=== PATIENT | female | born 1940 | race Caucasian/White ===

== ENCOUNTER 2020-12-06 11:47 | Observation (INO) | payer MEDICARE, MEDICAID ==
--- NOTE | 2020-12-06 12:24 | EDM.PDOC ---
ED HPI GENERAL MEDICAL PROBLEM - General Chief Complaint: General Stated Complaint: VOMITING Time Seen by Provider: 12/06/20 12:20 Source of Information: Reports: Patient History Limitations: Reports: No Limitations - History of Present Illness INITIAL COMMENTS - FREE TEXT/NARRATIVE: 80-year-old female who reports was having a bowel movement at approximately 9 AM today and she was having to strain quite a bit as she normally does to have a bowel movement and she begin to feel very weak and dizzy and some generalized abdominal discomfort and she went to her bed and laid down and rested for a period of time but she had to go to the clinic because she had carotid ultrasounds were being performed today and she arrived at the clinic in about 10:15 AM while she was there she began to feel worse and she felt very weak all over and then she states she "lost a bit of time". According to Dr. Peace who called and discussed the patient with me as she was sending her via ambulance to the emergency department, the patient apparently he slurred speech and then had some sweating and is noted to have a blood pressure in the 60-80 systolic range and became unresponsive for a period of time. She then had vomiting 2 or 3 and she seemed to clear but after this and became more responsive and her blood pressure mayra into the 100 systolic range. She did not have any chest pain at that time. There is no shortness of breath at that time. She had really no abdominal pain at that time as well. She does present to the emergency department via ambulance in her blood pressure en route was 120 systolic. The EMS crew was given the patient normal saline milliliters IV as a bolus. She tells me that she feels better but she still feels weak all over. And she states that when she tries to sit up, things get worse. She reports that prior to this she had been eating and drinking normally. She felt her "usual self". She states that she frequently has problems with her bowels moving and feels that she has to strain with them and has some discomfort with passing bowel movements. No fevers or chills. No dysuria or hematuria. No cough. No difficulty breathing. There are no other associated signs or symptoms. There are no other modifying factors. 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.) - Related Data Allergies Allergy/AdvReac Type Severity Reaction Status Date / Time [id number]-[id number]-Xtd Reductase Allergy Weakness Verified 12/06/20 13:11 Inhibitor Home Meds: Home Meds Cyanocobalamin (Vitamin B12) [Vitamin B12] 1,000 mcg IM Q30D 03/23/20 [History] Diclofenac Sodium 1 applic TOP BID PRN 03/23/20 [History] Ezetimibe [Zetia] 10 mg PO DAILY 03/23/20 [History] Gabapentin [Neurontin] 600 mg PO BEDTIME 03/23/20 [History] Insulin Glarg,Human.Rec.Analog [Lantus Solostar] 14 units SUBCUT DAILY 03/23/20 [History] Levothyroxine Sodium [Levothyroxine] 50 mcg PO ACBREAKFAST 03/23/20 [History] Lubiprostone [Amitiza] 1 cap PO BID 03/23/20 [History] Omeprazole 20 mg PO DAILY 03/23/20 [History] Ozempic 0.25 - 0.5 mg SUBCUT Q7D 03/23/20 [History] Aspirin 81 mg PO DAILY 12/06/20 [History] Bisacodyl [Laxative Suppository] PRN 12/06/20 [History] Melatonin 10 mg SL BEDTIME 12/06/20 [History] Olmesartan [Benicar] 20 mg PO DAILY 12/06/20 [History] Ondansetron [Zofran ODT] 4 mg PO PRN 12/06/20 [History] Sennosides [Senna Lax] PRN 12/06/20 [History] Sertraline [Zoloft] 100 mg PO BEDTIME 12/06/20 [History] Simethicone [Gas Relief] 125 mg PO PRN 12/06/20 [History] Past Medical History HEENT History: Reports: Impaired Vision (Wears glasses) Cardiovascular History: Reports: Hypertension Gastrointestinal History: Reports: Cholelithiasis, GERD Genitourinary History: Reports: Pyelonephritis, Urinary Incontinence, Other (See Below) Other Genitourinary History: UTI currently taking antibiotics for has had since January Musculoskeletal History: Reports: Arthritis, Back Pain, Chronic, Other (See Below) Other Musculoskeletal History: cortisone shot in each arm for torn shoulder tendons and thumbs bilaterally Neurological History: Reports: CVA Psychiatric History: Reports: Anxiety, Depression Endocrine/Metabolic History: Reports: Diabetes, Type II, Hypothyroidism - Infectious Disease History Infectious Disease History: Reports: Measles, Mumps - Past Surgical History HEENT Surgical History: Reports: Cataract Surgery GI Surgical History: Reports: Colonoscopy Female Surgical History: Reports: Hysterectomy Social & Family History - Tobacco Use Tobacco Use Status *Q: Unknown Ever Used Tobacco (Nonsmoker.) - Caffeine Use Caffeine Use: Reports: Coffee - Alcohol Use Alcohol Use History: No - Living Situation & Occupation Living situation: Reports: Social History Comment: Lives by herself in her own home. ED ROS GENERAL - Review of Systems Review Of Systems: See Below Constitutional: Reports: Weakness, Diaphoresis. Denies: Fever, Chills HEENT: Denies: Throat Pain, Throat Swelling Respiratory: Denies: Shortness of Breath, Cough Cardiovascular: Denies: Chest Pain, Palpitations Endocrine: Denies: Polydypsia, Polyuria GI/Abdominal: Reports: Abdominal Pain (Mild, diffuse,), Nausea, Vomiting : Denies: Dysuria, Frequency, Hematuria, Urgency Musculoskeletal: Denies: Neck Pain, Arm Pain, Back Pain Skin: Reports: Diaphoresis. Denies: Rash Neurological: Denies: Dizziness, Headache Psychiatric: Reports: Anxiety. Denies: Confusion Hematologic/Lymphatic: Denies: Easy Bleeding, Easy Bruising ED EXAM, GENERAL - Physical Exam Exam: See Below Exam Limited By: No Limitations General Appearance: Alert, WD/WN, Anxious, Moderate Distress (Appears uncomfortable. Otherwise nontoxic.) Eye Exam: Bilateral Eye: EOMI, Normal Inspection (Sclera are anicteric), PERRL Ears: Normal External Exam, Hearing Grossly Normal Ear Exam: Bilateral Ear: Auricle Normal Nose: Normal Inspection, Normal Mucosa, No Blood Throat/Mouth: Normal Voice, No Airway Compromise, Other (Dry mucous membranes. No erythema.) Head: Atraumatic, Normocephalic Neck: Normal Inspection, Supple, Non-Tender, Full Range of Motion Respiratory/Chest: No Respiratory Distress, Lungs Clear, Normal Breath Sounds, No Accessory Muscle Use, Chest Non-Tender Cardiovascular: Normal Peripheral Pulses, Regular Rate, Rhythm, No Murmur Peripheral Pulses: 2+: Radial (L), Radial (R), Dorsalis Pedis (L), Dorsalis Pedis (R) GI/Abdominal: Normal Bowel Sounds, Soft, Non-Tender, No Mass Rectal (Female) Exam: Heme - Stool, Other (Some anal stenosis.). No: Mass Back Exam: Normal Inspection, Full Range of Motion Extremities: Normal Inspection, Normal Range of Motion, Non-Tender, No Pedal Edema, Normal Capillary Refill Neurological: Alert, Oriented, CN II-XII Intact, Normal Cognition, No Motor/Sensory Deficits Psychiatric: Anxious Skin Exam: Warm, Dry, Intact, Normal Color, No Rash #1 Interpretation EKG Date: 12/06/20 Time: 12:34 Rhythm: NSR Rate (Beats/Min): 57 [place]: Normal P-Wave: Present QRS: Normal ST-T: Normal QT: Normal Comparison: No Change (No change from an EKG performed on 03/23/2020.) Course - Vital Signs Last Recorded V/S: Last Vital Signs Temp 36.7 C 12/06/20 12:04 Pulse 62 12/06/20 13:30 Resp 13 12/06/20 13:30 BP 130/59 L 12/06/20 13:30 Pulse Ox 98 12/06/20 15:20 Orthostatic Blood Pressure [ 99/64 Standing] Orthostatic Blood Pressure [ 109/73 Sitting] Orthostatic Blood Pressure [ 120/48 Supine] - Orders/Labs/Meds Orders: Active Orders 24 hr Category Date Time Status Admission Status [Patient Status] [ADT] Routine ADT 12/06/20 15:09 Active Blood Glucose Check, Bedside [RC] QIDACANDBED Care 12/06/20 15:20 Active Cardiac Monitoring [RC] .As Directed Care 12/06/20 15:09 Active Orthostatic Vital Signs [RC] ONETIME Care 12/06/20 12:24 Active Oxygen Therapy [RC] PRN Care 12/06/20 15:20 Active Pulse Oximetry [RC] PRN Care 12/06/20 15:23 Active Up With Assistance [RC] ASDIRECTED Care 12/06/20 15:20 Active Up to Chair [RC] ASDIRECTED Care 12/06/20 15:20 Active VTE/DVT Education [RC] Per Unit Routine Care 12/06/20 15:20 Active Vital Signs [RC] QSHIFT Care 12/06/20 15:20 Active Consistent Carbohydrate Diet [DIET] Diet 12/06/20 Dinner Active CBC WITH AUTO DIFF [HEME] AM Lab 12/07/20 05:11 Ordered COMPREHENSIVE METABOLIC PN,CMP [CHEM] AM Lab 12/07/20 05:11 Ordered CORONAVIRUS COVID-19 CHAVEZ [MOLEC] Stat Lab 12/06/20 15:22 Received CORTISOL Routine Lab 12/07/20 06:00 Ordered MAGNESIUM [CHEM] AM Lab 12/07/20 05:11 Ordered TROPONIN I [CHEM] AM Lab 12/07/20 05:11 Ordered TSH ULTRASENSITIVE [CHEM] Routine Lab 12/07/20 06:00 Ordered UA W/MICROSCOPIC [URIN] Stat Lab 12/06/20 15:55 Ordered Sodium Chloride 0.9% [Saline Flush] Med 12/06/20 12:24 Active 10 ml FLUSH ASDIRECTED PRN Peripheral IV Insertion Adult [OM.PC] Routine Oth 12/06/20 12:24 Ordered Resuscitation Status Routine Resus Stat 12/06/20 15:20 Ordered EKG 12 Lead [EK] Routine Ther 12/06/20 12:24 Ordered Medication Orders Sodium Chloride (Sodium Chloride 0.9% 10 Ml Syringe) 10 ml FLUSH ASDIRECTED PRN PRN Reason: Keep Vein Open Last Admin: 12/06/20 15:20 Dose: 10 ml Documented by: Admin: 12/06/20 13:16 Dose: 10 ml Documented by: YURI Labs: Laboratory Tests 12/06/20 12/06/20 12/06/20 Range/Units 12:35 12:35 12:35 WBC 6.3 (3.0-10.3) x10-3/uL RBC 3.99 (3.60-5.20) x10(6)uL Hgb 11.1 L (11.4-15.5) g/dL Hct 34.0 L (34.2-48.2) % MCV 85.2 (76.7-100.5) fL MCH 27.7 (23.9-33.9) pg MCHC 32.6 (31.9-34.8) g/dL RDW 13.5 (12.3-16.5) % Plt Count 276 (151-488) x10(3)uL MPV 6.2 L (7.1-12.4) fL Neut % (Auto) 80.2 H (30.8-76.2) % Lymph % (Auto) 12.8 L (18.4-52.1) % [place] % (Auto) 5.8 (4.4-15.7) % Eos % (Auto) 0.9 (0.6-8.1) % Baso % (Auto) 0.3 (0.2-1.5) % Neut # (Auto) 5.1 (1.5-6.3) x10-3/uL Lymph # (Auto) 0.8 L (1.0-4.4) x10-3/uL [place] # (Auto) 0.4 (0.3-1.0) x10-3/uL Eos # (Auto) 0.1 (0.0-0.8) x10-3/uL Baso # (Auto) 0.0 (0.0-0.1) x10-3/uL Sodium 142 (135-145) mmol/L Potassium 4.6 (3.5-5.3) mmol/L Chloride 108 (100-110) mmol/L Carbon Dioxide 29 (21-32) mmol/L BUN 14 (7-18) mg/dL Creatinine 1.4 H (0.55-1.02) mg/dL Est Cr Clr Drug Dosing 23.78 mL/min Estimated GFR (MDRD) 36 L (>60) BUN/Creatinine Ratio 10.0 (9-20) Glucose 101 (80-116) mg/dL Calcium 8.9 (8.6-10.2) mg/dL Magnesium 2.0 (1.8-2.5) mg/dL Total Bilirubin 0.4 (0.1-1.3) mg/dL AST 13 (5-25) IU/L ALT 15 (12-36) U/L Alkaline Phosphatase 82 (56-112) IU/L Troponin I < 4.0 L (4.0-60.3) pg/mL C-Reactive Protein < 0.2 L (0.5-0.9) mg/dL Total Protein 5.9 L (6.0-8.0) g/dL Albumin 3.3 (3.2-4.6) g/dL Globulin 2.6 g/dL Albumin/Globulin Ratio 1.3 Meds: Medications Generic Name Dose Route Start Last Admin Trade Name César PRN Reason Stop Dose Admin Sodium Chloride 10 ml 12/06/20 12:24 12/06/20 15:20 Sodium Chloride 0.9% 10 Ml Syringe FLUSH 10 ml ASDIRECTED PRN Administration Keep Vein Open Discontinued Medications Generic Name Dose Route Start Last Admin Trade Name César PRN Reason Stop Dose Admin Sodium Chloride 500 mls @ 999 mls/hr 12/06/20 12:54 12/06/20 13:05 Normal Saline IV 12/06/20 13:24 999 mls/hr .BOLUS ONE Administration Sodium Chloride 500 mls @ 999 mls/hr 12/06/20 15:17 12/06/20 15:20 Normal Saline IV 12/06/20 15:47 999 mls/hr .BOLUS ONE Administration Iopamidol 75 ml 12/06/20 14:38 12/06/20 15:10 Iopamidol 755 Mg/Ml 75 Ml Bottle IV 12/06/20 14:39 75 ml ASDIRECTED ONE Administration Lorazepam 0.5 mg 12/06/20 12:54 12/06/20 13:05 Lorazepam 2 Mg/Ml Sdv IVPUSH 12/06/20 12:55 0.5 mg ONETIME ONE Administration - Radiology Interpretation Free Text/Narrative:: CT scan of the abdomen and pelvis showed hydronephrosis on the right. No evidence of ureterolithiasis or anything that would be causing the hydronephrosis. Otherwise was negative per Dr. Aguilar. - Re-Assessments/Exams Free Text/Narrative Re-Assessment/Exam: 12/06/20 13:50: White blood cell count is 6.3. Hemoglobin is 11.1. This is down from 14 from about a year ago. Platelet count is normal. Sodium is 142. Potas sium is 4.6. Bicarbonate was 29. BUN is 14 and creatinine is 1.4. Glucose is 101. LFTs are normal. Magnesium is normal. Troponin is negative. CRP is normal. The patient still reports she feels weak. Her blood pressure with her lying is in the 110 to 1:30 systolic range but when she stood after the 500 bolus of normal saline from the ambulance crew, she is orthostatic changes and had dizziness with standing. We will give her another 500 mL bolus of normal saline. She appears to be dehydrated from some cause. 12/06/20 14:25: The patient is still orthostatic after another 500 mL bolus of normal saline. With a blood pressure down to the 90 systolic range. She denies any chest pain or comfort at this time but was reporting some abdominal discomfort earlier. I will send the patient for CT scan of her abdomen and pelvis. I did discuss the patient's case with Dr. Mc. The patient is still having some hypotension and will need admission. He will see the patient and admit her. The plan will be to place her under observation status. 12/06/20 15:20: CT scan of the abdomen and pelvis was really pointing toward anything that would cause retention of his colitis. Process and a urine will be sent. I called and discussed this with Dr. Mc as the patient had been transferred to the floor. Departure - Departure Time of Disposition: 15:10 Disposition: Refer to Observation Condition: Fair (Stable) Clinical Impression: Hypotension Qualifiers: Hypotension type: unspecified hypotension type Qualified Code(s): I95.9 - Hypotension, unspecified Syncope Qualifiers: Syncope type: unspecified Qualified Code(s): R55 - Syncope and collapse - Discharge Information Referrals: Neris Peace MD [Primary Care Provider] - Forms: ED Department Discharge Sepsis Event Note (ED) - Evaluation Sepsis Screening Result: No Definite Risk - Focused Exam Vital Signs: Vital Signs Temp Pulse Resp BP Pulse Ox Pulse Ox 12/06/20 15:20 98 12/06/20 13:30 62 13 130/59 L 95 12/06/20 13:15 57 L 9 L 112/83 99 12/06/20 13:05 99 12/06/20 13:04 99 12/06/20 13:00 98 12/06/20 12:45 61 14 155/115 H 100 12/06/20 12:30 62 13 123/57 L 95 12/06/20 12:15 62 11 L 127/55 L 95 12/06/20 12:04 36.7 C 63 16 134/58 L 94 L 12/06/20 12:00 64 12 134/58 L 94 L 12/06/20 11:50 36.7 C 59 L 16 123/57 L 96 - My Orders Last 24 Hours: My Active Orders 12/06/20 12:24 Orthostatic Vital Signs [RC] ONETIME Sodium Chloride 0.9% [Saline Flush] 10 ml FLUSH ASDIRECTED PRN Peripheral IV Insertion Adult [OM.PC] Routine EKG 12 Lead [EK] Routine 12/06/20 15:09 Admission Status [Patient Status] [ADT] Routine Cardiac Monitoring [RC] .As Directed 12/06/20 15:22 CORONAVIRUS COVID-19 CHAVEZ [MOLEC] Stat 12/06/20 15:55 UA W/MICROSCOPIC [URIN] Stat - Assessment/Plan Last 24 Hours: My Active Orders 12/06/20 12:24 Orthostatic Vital Signs [RC] ONETIME Sodium Chloride 0.9% [Saline Flush] 10 ml FLUSH ASDIRECTED PRN Peripheral IV Insertion Adult [OM.PC] Routine EKG 12 Lead [EK] Routine 12/06/20 15:09 Admission Status [Patient Status] [ADT] Routine Cardiac Monitoring [RC] .As Directed 12/06/20 15:22 CORONAVIRUS COVID-19 CHAVEZ [MOLEC] Stat 12/06/20 15:55 UA W/MICROSCOPIC [URIN] Stat
[2020-12-06] MEDS ORDERED: Sodium Chloride 0.9% 500 ML IV ONE ×2 (12:54→15:17)
[2020-12-06] MEDS ORDERED: LORazepam 2 MG/ML SDV IVPUSH ONE (12:54)
[2020-12-06] MEDS: Sodium Chloride 0.9% 10 ML Syringe FLUSH PRN ×2 (13:16→15:20)
[2020-12-06] MEDS ORDERED: Iopamidol 755 Mg/ML 75 ML Bottle IV ONE (14:38)
--- NOTE | 2020-12-06 15:58 | CT ---
INDICATION: Abdominal discomfort, syncope, nausea and vomiting this morning. CT ABDOMEN AND PELVIS WITH CONTRAST: Spiral 3.75 mm axial sections were obtained through the abdomen and pelvis with 75 mL [id number]-370 at 2 mL/sec with 2 minute delay due to equipment error, 12/06/20 and compared with 10/16/20. Total exam DLP was 399.47 milligray-cm. The lower lung pérez and pleural spaces visualized again showed a small nodular density oval in shape in the left lower lobe on axial image 10 seen on the previous study on axial image 11. No active infiltrate or effusion was seen. The heart appeared normal in size. There is slight thickening of the pericardium of questionable significance that could be related to a mild degree of pericarditis or previous pericarditis - correlate clinically. The gallbladder is absent compatible with cholecystectomy. Clips are noted at the cystic duct. The liver had a normal appearance. The adrenal glands are unchanged and not grossly abnormal with spleen and pancreas appearing essentially normal. The common bile duct was normal in caliber. Calcifications are noted in the splenic artery, gastric and hepatic arteries, superior mesenteric artery, iliac and femoral arteries. The uterus is absent compatible with history of its removal. Urinary bladder was unremarkable. No retroperitoneal mass was seen. The stomach was empty - nondiagnostic. The appendix is absent compatible with history of its removal. No evidence of free air or bowel obstruction was seen. No evidence of ventral or inguinal hernia was seen. No aneurysmal dilatation of the aorta was seen. A minimal dextroconcave scoliosis of the lumbar spine is again noted with hypertrophic degenerative changes and disc disease at L2-L3 again noted. Marked narrowing at that disc space is noted. Hypertrophic degenerative changes and disc disease are noted at the lower thoracic spine also at multiple levels. The kidneys appeared normal on the left with a tiny probable cyst in the upper pole of the right kidney and apparent hydronephrosis and hydroureter down to the urinary bladder, although a focal site of obstruction was not identified - no ureteral calculus was seen - no urinary bladder calculus was seen. Findings could be on the basis of a recently passed right ureteral stone. With IV contrast on board, it is difficult to exclude renal calcinosis. IMPRESSION: 1. [id number]-laqsdtoag abdomen - no bowel obstruction or free air noted. 2. ASD. 3. Post appendectomy, post hysterectomy, post cholecystectomy. 4. Hydronephrosis and hydroureter on the right could represent recently passed stone or partially obstructive process at the ureterovesical junction although no specific etiology such as a calculus or a mass could be identified. This should be correlated clinically. Retrograde pyelography may be warranted depending upon clinical correlation. This appearance was not present on the previous study. 5. Degenerative changes and disc disease thoracolumbar spine. 6. Thickening of the pericardium seen previously could be on the basis of previous or mild pericarditis. 7. No specific abnormality of the large bowel was identified. 8. The stomach was not distended making it difficult to exclude thickening of the wall. Report was called to Dr. Manzo at 1532 hours 12/06/20. [facility]
[2020-12-06] MEDS ORDERED: Gabapentin 600 MG Tab PO SCH (21:00)
[2020-12-06] MEDS ORDERED: Melatonin 3 MG Tab PO SCH (21:00)
[2020-12-07] MEDS ORDERED: 50% Dextrose in Water 50 ML Syringe IVPUSH PRN (10:54)
[2020-12-07] MEDS ORDERED: Glucagon,Human Recombinant 1 MG Vial IM PRN (10:54)
[2020-12-07] MEDS ORDERED: Insulin Glargine,Human Rec. Analog 100 Units/ML 3 ML Pen *PTOM SUBCUT SCH (11:00)
--- NOTE | 2020-12-11 10:51 | HP ---
ADMISSION DATE: 12/06/2020 CHIEF COMPLAINT: Vomiting and weakness. HISTORY OF PRESENT ILLNESS: Ms. Conteh is an 80-year-old woman from [place] with a history of a right CVA, type 2 diabetes, orthostatic hypotension, and chronic essential hypertension. The patient has been seen by Dr. Peace in the clinic because of orthostatic type symptoms. She was scheduled to have a carotid Doppler study this morning and felt weak when she got up and drove herself to the clinic. She subsequently had a near syncopal episode and throwing up, so was brought to the emergency room where she was seen by Dr. Manzo and found to be significantly orthostatic. She is now admitted. The patient states this has been going on intermittently for the past couple of months. Dr. Peace stopped one of her diabetes pills because of it and she is still in the process of working up. She denies chest pain, palpitations, but states that this has happened to her at least once in the sitting position and at least once while lying down. She describes it as a feeling of dizziness like she has to close her eyes. She is not incontinent with it. PAST MEDICAL HISTORY: Right CVA with left hemiplegia in 2019. She has regained most of her strength, but her left leg still does not work as well. She also has a history of chronic essential hypertension. She has had UTIs. She has had 7 pregnancies and deliveries. She has had low back pain with spinal stenosis, improved with steroid injections. She has had arthritis in her shoulders and her thumbs. She has hypothyroidism, chronic depression. She is status post cataract surgeries, appendectomy, cholecystectomy, abdominal hysterectomy with USO, and she states she had a normal colonoscopy 1 month ago. MEDICATIONS: 1. Vitamin B12 1000 mcg IM monthly. 2. Diclofenac topical gel p.r.n. 3. Zetia 10 mg daily. 4. Gabapentin 600 mg b.i.d. 5. Lantus 14 units daily. 6. Levothyroxine 50 mcg daily. 7. Amitiza 1 cap b.i.d. 8. Olmesartan 20 mg daily. 9. Omeprazole 20 mg daily. 10.Ozempic 0.5 mg subcu weekly. 11.Januvia 50 mg daily. 12.Metformin 500 mg b.i.d. ALLERGIES: Statins caused a period of extensive weakness a couple of years ago. HABITS: Nonsmoker, nondrinker. FAMILY AND SOCIAL HISTORY: The patient moved to [place] to be near one of her children. She was originally from the [place] area. Her daughter has subsequently moved away. She does have an ex son-in-law in [facility], who has looked in on her. REVIEW OF SYSTEMS: Negative for fever, chills, sweats, or symptoms of recent infection. No recent change in hearing or vision. No cough, dyspnea, chest pain, palpitations. No abdominal pain. She does have chronic irritable bowel syndrome with alternating diarrhea and constipation. No swelling or skin rash. PHYSICAL EXAMINATION: GENERAL: She is alert and comfortable while lying. She is pale, however. VITAL SIGNS: Blood pressure 109/73, drops to 99/64 sitting. Pulse is 61 and regular, respirations normal, O2 saturation 99% on room air. Weight 132 pounds estimated. SKIN: Anicteric. Warm, dry. Face is pale. No rash is noted. No trauma. HEENT: Mouth is dry. Pupils equal and reactive with evidence of cataract surgery. LUNGS: Clear to the bases with good air movement. HEART: Regular without murmur, rub, or gallop. Carotids are brisk. No bruits are heard. ABDOMEN: Normal bowel sounds. Soft and nontender. No masses. No organomegaly. EXTREMITIES: Warm, well perfused. No edema. Dorsalis pedis pulses were palpable, but I could not feel her posterior tibials. LABORATORY DATA: White count 6,300, hemoglobin 11.1, MCV 85. Electrolytes normal. BUN 14, creatinine 1.4. Troponin less than 4. CRP less than 0.2. ASSESSMENT: 1. Orthostatic hypotension, cause unclear. 2. History of right cerebrovascular accident in 2019 with minimal left lower extremity residual weakness. 3. History of severe statin intolerance with extensive muscle weakness. 4. History of sciatica. 5. Type 2 diabetes. 6. Hypothyroidism. 7. Chronic essential hypertension. 8. Gastroesophageal reflux disease. 9. Irritable bowel syndrome. PLAN: We will admit her for additional IV fluid, recheck her orthostatic vitals, likely decrease her gabapentin as tolerated, and anticipate a brief hospital stay. /[id number] RO/MODL
--- NOTE | 2020-12-11 10:52 | HP ---
ADMISSION DATE: 12/06/2020 CHIEF COMPLAINT: Weak spell, nausea, vomiting, and low blood pressure. HISTORY OF PRESENT ILLNESS: Vanessa Conteh is an 80-year-old female, who was admitted through [facility] ER by Dr. Manzo. She had been feeling poorly for the last couple of days time. She has a longstanding history of IBS and some difficult bowel movements. Has had lower endoscopy to prove confirmation of normal anatomy. She had gone to [facility] in [place], under the care Dr. Peace. She was scheduled for a carotid ultrasound. 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 When she got there, she felt weak, nauseated, had an episode of vomiting. Blood pressure was low systolics 50 to 80, was transferred by ambulance. IV fluids were given en route, was seen by Dr. Manzo in hospital for treatment. [place] better in her interval care and admission to the emergency room. Feeling well since that time. MEDICATIONS: Daily medications include: 1. Tylenol 500 mg q.6 hours p.r.n. for pain. 2. Baby aspirin 81 mg, CVA prevention. 3. PRN bisacodyl suppository. 4. Vitamin B12 1000 mg IM q.30 days duration, pernicious anemia. 5. Diclofenac gel 2 g q.i.d., affected joint. 6. Zetia 10 mg 1 p.o. daily, hyperlipidemia. 7. Gabapentin 600 mg at bedtime, neuropathic pain. 8. Lantus 10 units subcu daily, NIDDM. 9. Levothyroxine 50 mcg one p.o. daily, hypothyroidism. 10.Loratadine 10 mg p.r.n. hay fever. 11.Amitiza 24 mg b.i.d., IBS. 12.Milk of mag 15 to 30 at bedtime p.r.n. constipation. 13.Melatonin 20 mg at bedtime, sleep enhancement. 14.Benicar 10 mg 1 p.o. daily, blood pressure. 15.Prilosec 20 mg 1 p.o. daily, GERD. 16.PRN sublingual Zofran for nausea. 17.Ozempic 0.5 mg subcu once weekly. 18.MiraLAX 17 g one daily, constipation. 19.Senna 1 or 2 daily, constipation. 20.Sertraline 50 mg 1 p.o. daily, mood stabilizer. 21.Simethicone 25 mg chewable t.i.d., gastritis. 22.Triamcinolone cream. ALLERGIES: Statins with weakness. PAST MEDICAL HISTORY: Significant for previous operative cholelithiasis. Appendectomy and hysterectomy. No other operative procedures, hospitalizations, unusual childhood diseases, major injuries, or fractures. Medical disorders noted above. SOCIAL HISTORY: . Lives in the [facility]. Seven children; 3 girls, 4 boys. Nonsmoker. No alcohol. No illicit drug use. REVIEW OF SYSTEMS: CONSTITUTIONAL: Feeling much better this morning. EYES: Some visual change related to stroke. EARS: Hears well, some difficulty in crowds. OROPHARYNX: Intact dentition. CV: Denies chest pain, palpitations. RESPIRATORY: No chronic cough, wheeze, or congestion . GI: Please see HPI. : Voiding comfortably, no blood in urine. SKIN: No lesions, eruptions, or moles . ENDOCRINE: No excessive thirst or urination. PHYSICAL EXAMINATION: VITAL SIGNS: Stable. 36.4, pulse 107, 132/82, respirations 16, O2 saturation 98%. GENERAL: Young lady, cooperative, conversant. Gives a good history. HEENT: Unremarkable. NECK: Supple. Thyroid small. No carotid bruits. CHEST: On auscultation, clear in all lung pérez. HEART: On auscultation, no ectopy or murmur . BREASTS: Declined. ABDOMEN: Benign. Right upper quadrant cholecystectomy scar, appendectomy scar. Surgical scars well healed. No hepatosplenomegaly. PELVIC: Refused. RECTAL: Refused . EXTREMITIES: Refused. LABORATORY STUDIES: White count 6300, repeat 4000; hemoglobin 11.1, repeat 10.5. Electrolytes satisfactory. Creatinine 1.4, repeat 1.3; GFR 36, increased to 39. Urinalysis noted positive nitrites, 5-10 red cells, 20-30 white cells, we will await culture report. COVID negative. CT abdomen revealed nonacute abdomen, absent appendix post hysterectomy, post cholecystectomy. Hydronephrosis of right side, but no complicating issue. Degenerative changes. ASSESSMENT: Acute vasovagal episode, nausea, vomiting, hypertension. PLAN: No medications on board that are related to blood pressure. Adequate fluids and hydration, well being. At the time of my examination, she was stable, comfortable, and ready for discharge. We will follow up with Dr. Peace. Timely appropriate care. We will complete carotid ultrasound at a later time. /[id number] CHAMP/BEBA
--- NOTE | 2020-12-11 10:52 | DISCH ---
DISCHARGE DATE: 12/07/2020 Vanessa Conteh is an 80-year-old female admitted with vasovagal symptoms, nausea, and marked reduction in blood pressure. She was evaluated overnight, intravenous fluids were given, blood pressures normalized, and she was otherwise comfortable. Laboratory studies and CT of the abdomen revealed no major new pathological findings. Vital signs were stable, exam was without conflict, was discharged home. She is encouraged to be a better fluid drinker, medications will be unchanged. She will follow up with Dr. Peace in 1 week's duration and completion of her carotid studies. /[id number] CHAMP/BEBA
== END 2020-12-07 12:33 | disposition home or self-care (01) ==
LOC: FB.ED 11:47 → FB.MS 15:14 → UNDOADMOB 15:14
PROVIDERS: ADMIT Family Medicine; ATTEND Family Medicine
DX: I95.9 Hypotension, unspecified (principal); E11.9 Type 2 diabetes mellitus without complications; E03.9 Hypothyroidism, unspecified; I10 Essential (primary) hypertension; E78.00 Pure hypercholesterolemia, unspecified; N13.30 Unspecified hydronephrosis; Z86.73 Personal history of transient ischemic attack (TIA), and cerebral infarction without residual deficits; Z79.82 Long term (current) use of aspirin; Z79.890 Hormone replacement therapy; Z79.899 Other long term (current) drug therapy; Z88.8 Allergy status to other drugs, medicaments and biological substances; Z20.822 Contact with and (suspected) exposure to COVID-19
CPT/HCPCS: 36415; 74177; 80053; 81001; 82272; 82533; 82947; 83735; 84443; 84484; 85025; 86140; 87086; 87088; 87186; 93005; 96374; 99285; A9270; J1815; J2060; J7040; Q9967; U0002; G0378

== ENCOUNTER 2021-01-26 13:05 | Inpatient (IN) | payer MEDICARE, MEDICAID ==
[2021-01-26] MEDS ORDERED: Morphine 2 MG/ML SYRINGE IVPUSH ONE ×3 (13:11→15:25)
[2021-01-26] MEDS: Ondansetron 4 MG/2 ML SDV IVPUSH PRN (13:19)
[2021-01-26] MEDS ORDERED: hydrALAZINE 20 MG/ML SDV IVPUSH PRN (13:49)
[2021-01-26] MEDS ORDERED: Iopamidol 755 Mg/ML 75 ML Bottle IV ONE (14:50)
--- NOTE | 2021-01-26 14:57 | EDM.PDOC ---
ED HPI GENERAL MEDICAL PROBLEM - General Chief Complaint: Abdominal Pain Stated Complaint: ?? Time Seen by Provider: 01/26/21 13:10 Source of Information: Reports: Patient - History of Present Illness INITIAL COMMENTS - FREE TEXT/NARRATIVE: 80-year-old lady brought to the emergency department from [facility] by EMS secondary to severe right sided/right flank pain. She has a history of gallstones and a history of diverticulitis. He is a poor historian and is not sure what medication she is taking. She denies chest pain, shortness of breath, fever, difficulty urinating, diarrhea, constipation. This right sided pain has been present off and on for about a week but has become more more severe. Right Abdomen Pain Score (Numeric/FACES): 10 - Related Data Allergies Allergy/AdvReac Type Severity Reaction Status Date / Time Zykryeb-JXQ-MxO Reductase Allergy Weakness Verified 12/06/20 13:11 Inhibitor [Etzwgeu-Dbb-Yco Reductase Inhibitor] Home Meds: Home Meds Ezetimibe [Zetia] 10 mg PO DAILY 03/23/20 [History] Gabapentin [Neurontin] 300 mg PO BEDTIME 03/23/20 [History] Insulin Glarg,Human.Rec.Analog [Lantus Solostar] 10 units SUBCUT DAILY 03/23/20 [History] Levothyroxine Sodium [Levothyroxine] 50 mcg PO ACBREAKFAST 03/23/20 [History] Lubiprostone [Amitiza] 24 mcg PO BIDMEALS 03/23/20 [History] Omeprazole 20 mg PO DAILY 03/23/20 [History] Ozempic 0.5 mg SUBCUT TH 03/23/20 [History] Aspirin 81 mg PO DAILY 12/06/20 [History] Melatonin 10 mg SL BEDTIME 12/06/20 [History] Sertraline [Zoloft] 100 mg PO BEDTIME 12/06/20 [History] polyethylene glycoL 3350 [MiraLAX] 17 gm PO DAILY 12/06/20 [History] Diclofenac Sodium [Voltaren 1% Gel] 2 gram TOP QID 01/26/21 [History] Lutein 10 mg PO DAILY 01/26/21 [History] Past Medical History HEENT History: Reports: Impaired Vision Other HEENT History: wears glasses Cardiovascular History: Reports: Hypertension Gastrointestinal History: Reports: Cholelithiasis, Chronic Diarrhea, Diverticulosis, GERD Genitourinary History: Reports: Pyelonephritis, Urinary Incontinence, Other (See Below) Other Genitourinary History: UTI currently taking antibiotics for has had since January [employer] History: Reports: Musculoskeletal History: Reports: Arthritis, Back Pain, Chronic, Other (See Below) Other Musculoskeletal History: cortisone shot in each arm for torn shoulder tendons and thumbs bilaterally Neurological History: Reports: CVA, Neuropathy, Diabetic Psychiatric History: Reports: Anxiety, Depression Endocrine/Metabolic History: Reports: Diabetes, Type II, Hypothyroidism - Infectious Disease History Infectious Disease History: Reports: Measles, Mumps - Past Surgical History HEENT Surgical History: Reports: Cataract Surgery GI Surgical History: Reports: Colonoscopy Female Surgical History: Reports: Hysterectomy Musculoskeletal Surgical History: Reports: None Social & Family History - Family History Family Medical History: No Pertinent Family History - Tobacco Use Tobacco Use Status *Q: Never Tobacco User - Caffeine Use Caffeine Use: Reports: Coffee, Tea - Recreational Drug Use Recreational Drug Use: No - Living Situation & Occupation Living situation: Reports: ED ROS GENERAL - Review of Systems Review Of Systems: See Below Constitutional: Reports: Fatigue HEENT: Reports: No Symptoms Respiratory: Reports: No Symptoms Cardiovascular: Reports: No Symptoms Endocrine: Reports: Fatigue GI/Abdominal: Reports: Abdominal Pain : Reports: No Symptoms Musculoskeletal: Reports: No Symptoms Skin: Reports: No Symptoms Neurological: Reports: No Symptoms Psychiatric: Reports: No Symptoms Hematologic/Lymphatic: Reports: No Symptoms Immunologic: Reports: No Symptoms ED EXAM, GI/ABD - Physical Exam Exam: See Below Text/Narrative:: Visual inspection of the anterior abdomen, back, right flank shows no deformity, swelling, ecchymosis, erythema. There is no tenderness to palpation anteriorly but there is tenderness to palpation and Eder's punch any posterior flank area. Exam Limited By: No Limitations General Appearance: Alert, WD/WN, Mild Distress Eyes: Bilateral: EOMI Head: Atraumatic, Normocephalic Neck: Normal Inspection Respiratory/Chest: No Respiratory Distress, Lungs Clear Cardiovascular: Regular Rate, Rhythm GI/Abdominal Exam: Normal Bowel Sounds, Soft, Non-Tender Back Exam: CVA Tenderness (R) Extremities: Normal Inspection Neurological: Alert, Oriented, Normal Cognition Psychiatric: Normal Affect, Normal Mood Skin Exam: Warm, Dry Course - Vital Signs Text/Narrative:: Review of laboratory analysis shows likely urinary tract infection. Review of CT of the abdomen and pelvis shows possible diverticulitis. Patient will be treated for diverticulitis with IV ciprofloxacin and Flagyl. After consultation with hospitalist patient will be admitted to inpatient care for IV antibiotics and weakness. Last Recorded V/S: Last Vital Signs Temp 36.6 C 01/26/21 13:05 Pulse 79 01/26/21 13:05 Resp 20 01/26/21 13:05 BP 188/70 H 01/26/21 13:05 Pulse Ox 99 01/26/21 13:05 - Orders/Labs/Meds Orders: Active Orders 24 hr Category Date Time Status Abdomen Pelvis w Cont [CT] Stat Exams 01/26/21 14:09 Taken Ciprofloxacin in D5W [Cipro in D5W 400 MG/200 ML] 400 Med 01/26/21 15:45 Active mg Premix Bag 1 bag IV Q24H Ondansetron [Zofran] Med 01/26/21 13:12 Active 4 mg IVPUSH Q4H PRN Sodium Chloride 0.9% [Normal Saline] 1,000 ml Med 01/26/21 15:00 Active IV ASDIRECTED hydrALAZINE [Apresoline] Med 01/26/21 13:49 Active 10 mg IVPUSH Q6H PRN metroNIDAZOLE/Normal Saline [Flagyl in NS 500 MG/100 ML Med 01/26/21 15:45 Active ] 500 mg Premix Bag 1 bag IV Q8H Medication Orders Hydralazine HCl (Hydralazine 20 Mg/Ml Sdv) 10 mg IVPUSH Q6H PRN PRN Reason: Hypertension Last Admin: 01/26/21 14:23 Dose: 10 mg Documented by: CHANTELLE Sodium Chloride (Normal Saline) 1,000 mls @ 75 mls/hr IV ASDIRECTED BOOKER Last Admin: 01/26/21 15:31 Dose: 75 mls/hr Documented by: CHANTELLE Ciprofloxacin/Dextrose 400 mg/ (Premix) 200 mls @ 200 mls/hr IV Q24H [facility] Last Admin: 01/26/21 15:59 Dose: 200 mls/hr Documented by: CHANTELLE Metronidazole 500 mg/ Premix 100 mls @ 100 mls/hr IV Q8H [facility] Stop: 02/04/21 23:00 Last Admin: 01/26/21 16:00 Dose: 100 mls/hr Documented by: CHANTELLE Ondansetron HCl (Ondansetron 4 Mg/2 Ml Sdv) 4 mg IVPUSH Q4H PRN PRN Reason: Nausea/Vomiting Last Admin: 01/26/21 13:19 Dose: 4 mg Documented by: CHANTELLE Labs: Laboratory Tests 01/26/21 01/26/21 01/26/21 Range/Units 13:45 13:45 14:10 WBC 5.9 (3.0-10.3) x10-3/uL RBC 4.55 (3.60-5.20) x10(6)uL Hgb 12.2 (11.4-15.5) g/dL Hct 37.7 (34.2-48.2) % MCV 82.8 (76.7-100.5) fL MCH 26.8 (23.9-33.9) pg MCHC 32.4 (31.9-34.8) g/dL RDW 13.8 (12.3-16.5) % Plt Count 379 (151-488) x10(3)uL MPV 5.7 L (7.1-12.4) fL Neut % (Auto) 65.7 (30.8-76.2) % Lymph % (Auto) 28.2 (18.4-52.1) % [place] % (Auto) 4.0 L (4.4-15.7) % Eos % (Auto) 1.7 (0.6-8.1) % Baso % (Auto) 0.4 (0.2-1.5) % Neut # (Auto) 3.9 (1.5-6.3) x10-3/uL Lymph # (Auto) 1.7 (1.0-4.4) x10-3/uL [place] # (Auto) 0.2 L (0.3-1.0) x10-3/uL Eos # (Auto) 0.1 (0.0-0.8) x10-3/uL Baso # (Auto) 0.0 (0.0-0.1) x10-3/uL Sodium 139 (135-145) mmol/L Potassium 4.3 (3.5-5.3) mmol/L Chloride 105 D (100-110) mmol/L Carbon Dioxide 28 (21-32) mmol/L BUN 12 (7-18) mg/dL Creatinine 1.3 H (0.55-1.02) mg/dL Est Cr Clr Drug Dosing 24.38 mL/min Estimated GFR (MDRD) 39 L (>60) BUN/Creatinine Ratio 9.2 (9-20) Glucose 168 H D (80-116) mg/dL Calcium 8.4 L (8.6-10.2) mg/dL Total Bilirubin 0.3 (0.1-1.3) mg/dL AST 15 (5-25) IU/L ALT 27 D (12-36) U/L Alkaline Phosphatase 99 (56-112) IU/L Total Protein 5.8 L (6.0-8.0) g/dL Albumin 3.1 L (3.2-4.6) g/dL Globulin 2.7 g/dL Albumin/Globulin Ratio 1.2 Urine Color Yellow (YELLOW) Urine Appearance Cloudy (CLEAR) Urine pH 6.5 (5.0-6.5) Ur Specific [place] 1.010 (1.010-1.025) Urine Protein Negative (NEGATIVE) mg/dL Urine Glucose (UA) Normal (NORMAL) mg/dL Urine Ketones Negative (NEGATIVE) mg/dL Urine Occult Blood Negative (NEGATIVE) Urine Nitrite Negative (NEGATIVE) Urine Bilirubin Negative (NEGATIVE) Urine Urobilinogen Normal (NEGATIVE) mg/dL Ur Leukocyte Esterase Large H (NEGATIVE) Urine RBC 5-10 H (0-5) Urine WBC 50-75 H (0-5) Ur Squamous Epith Cells Moderate H (NS,R,O) Urine Bacteria Many H (NS) Meds: Medications Generic Name Dose Route Start Last Admin Trade Name Freq PRN Reason Stop Dose Admin Hydralazine HCl 10 mg 01/26/21 13:49 01/26/21 14:23 Hydralazine 20 Mg/Ml Sdv IVPUSH 10 mg Q6H PRN Administration Hypertension Sodium Chloride 1,000 mls @ 75 mls/hr 01/26/21 15:00 01/26/21 15:31 Normal Saline IV 75 mls/hr ASDIRECTED BOOKER Administration Ciprofloxacin/Dextrose 400 mg/ 200 mls @ 200 mls/hr 01/26/21 15:45 01/26/21 15:59 Premix IV 200 mls/hr Q24H BOOKER Administration Metronidazole 500 mg/ Premix 100 mls @ 100 mls/hr 01/26/21 15:45 01/26/21 16:00 IV 02/04/21 23:00 100 mls/hr Q8H BOOKER Administration Ondansetron HCl 4 mg 01/26/21 13:12 01/26/21 13:19 Ondansetron 4 Mg/2 Ml Sdv IVPUSH 4 mg Q4H PRN Administration Nausea/Vomiting Discontinued Medications Generic Name Dose Route Start Last Admin Trade Name Freq PRN Reason Stop Dose Admin Iopamidol 75 ml 01/26/21 14:50 01/26/21 15:07 Iopamidol 755 Mg/Ml 75 Ml Bottle IV 01/26/21 14:51 75 ml ASDIRECTED ONE Administration Morphine Sulfate 2 mg 01/26/21 13:11 01/26/21 13:19 Morphine 2 Mg/Ml Syringe IVPUSH 01/26/21 13:12 2 mg ONETIME ONE Administration Morphine Sulfate 2 mg 01/26/21 13:42 01/26/21 13:48 Morphine 2 Mg/Ml Syringe IVPUSH 01/26/21 13:43 2 mg ONETIME ONE Administration Morphine Sulfate 2 mg 01/26/21 15:25 01/26/21 15:30 Morphine 2 Mg/Ml Syringe IVPUSH 01/26/21 15:26 2 mg ONETIME ONE Administration Departure - Departure Time of Disposition: 16:21 Disposition: Admitted As Inpatient 65 Condition: Fair Clinical Impression: Urinary tract infection, Diverticulitis, Weakness - Discharge Information *PRESCRIPTION DRUG MONITORING PROGRAM REVIEWED*: Not Applicable *COPY OF PRESCRIPTION DRUG MONITORING REPORT IN PATIENT GERARDO: Not Applicable Forms: ED Department Discharge Sepsis Event Note (ED) - Evaluation Sepsis Screening Result: No Definite Risk - Focused Exam Vital Signs: Vital Signs Temp Pulse Resp BP Pulse Ox 01/26/21 13:05 36.6 C 79 20 188/70 H 99 - My Orders Last 24 Hours: My Active Orders 01/26/21 13:12 Ondansetron [Zofran] 4 mg IVPUSH Q4H PRN 01/26/21 13:49 hydrALAZINE [Apresoline] 10 mg IVPUSH Q6H PRN 01/26/21 14:09 Abdomen Pelvis w Cont [CT] Stat 01/26/21 15:00 Sodium Chloride 0.9% [Normal Saline] 1,000 ml IV ASDIRECTED 01/26/21 15:45 Ciprofloxacin in D5W [Cipro in D5W 400 MG/200 ML] 400 mg Premix Bag 1 bag IV Q24H metroNIDAZOLE/Normal Saline [Flagyl in NS 500 MG/100 ML] 500 mg Premix Bag 1 bag IV Q8H - Assessment/Plan Last 24 Hours: My Active Orders 01/26/21 13:12 Ondansetron [Zofran] 4 mg IVPUSH Q4H PRN 01/26/21 13:49 hydrALAZINE [Apresoline] 10 mg IVPUSH Q6H PRN 01/26/21 14:09 Abdomen Pelvis w Cont [CT] Stat 01/26/21 15:00 Sodium Chloride 0.9% [Normal Saline] 1,000 ml IV ASDIRECTED 01/26/21 15:45 Ciprofloxacin in D5W [Cipro in D5W 400 MG/200 ML] 400 mg Premix Bag 1 bag IV Q24H metroNIDAZOLE/Normal Saline [Flagyl in NS 500 MG/100 ML] 500 mg Premix Bag 1 bag IV Q8H
[2021-01-26] MEDS: Sodium Chloride 0.9% 1,000 ML IV SCH ×2 (15:31→18:20)
[2021-01-26] MEDS: Ciprofloxacin in D5W 400 MG in Premix Bag 1 BAG IV SCH ×2 (15:59)
[2021-01-26] MEDS: metroNIDAZOLE/Normal Saline 500 MG in Premix Bag 1 BAG IV SCH (16:00)
[2021-01-26] MEDS ORDERED: Glucagon,Human Recombinant 1 MG Vial IM PRN ×2 (19:10→19:15)
[2021-01-26] MEDS ORDERED: 50% Dextrose in Water 50 ML Syringe IVPUSH PRN ×2 (19:10→19:15)
[2021-01-26] MEDS ORDERED: Trolamine Salicylate/Aloe Vera 10% Crm 85 GM Tube TOP PRN (19:13)
[2021-01-26] MEDS ORDERED: Insulin Glargine,Human Rec. Analog 100 Units/ML 3 ML Pen SUBCUT ONE (20:19)
[2021-01-26] MEDS: Insulin Glargine,Human Rec. Analog 100 Units/ML 3 ML Pen SUBCUT SCH ×2 (20:32→20:37)
[2021-01-26] MEDS: Enoxaparin 30 MG/0.3 ML Syringe SUBCUT SCH (20:38)
[2021-01-26] MEDS ORDERED: MELATONIN 10 MG SL SCH (21:00)
[2021-01-26] MEDS: Gabapentin 300 MG Cap PO SCH (21:21)
[2021-01-26] MEDS: Sertraline 100 MG Tab PO SCH (21:22)
[2021-01-26] MEDS: Melatonin 3 MG Tab PO SCH (21:22)
[2021-01-26] MEDS ORDERED: Menthol/Methyl Salicylate 85 GM Tube TOP PRN (23:00)
[2021-01-27] MEDS: metroNIDAZOLE/Normal Saline 500 MG in Premix Bag 1 BAG IV SCH ×2 (01:01→08:35)
[2021-01-27] MEDS: HYDROmorphone 2 MG/ML SDV IVPUSH PRN ×2 (02:38→06:50)
[2021-01-27] MEDS: Levothyroxine 50 MCG Tab PO SCH (06:34)
[2021-01-27] MEDS ORDERED: Lubiprostone 24 MCG Cap PO SCH (08:00)
[2021-01-27] MEDS: Insulin Lispro 100 Unit/ML 3 ML KwikPen SUBCUT SCH ×3 (08:39→18:58)
[2021-01-27] MEDS: Insulin Glargine,Human Rec. Analog 100 Units/ML 3 ML Pen SUBCUT SCH (08:41)
[2021-01-27] MEDS: Polyethylene Glycol 3350 Powder 17 GM Packet PO SCH (08:43)
[2021-01-27] MEDS: Aspirin 81 MG Tab.Chew PO SCH (08:43)
[2021-01-27] MEDS ORDERED: Pantoprazole 40 MG Tab.CR PO SCH (09:00)
[2021-01-27] MEDS: Ibuprofen 200 MG Tab PO SCH ×3 (10:22→20:39)
[2021-01-27] MEDS: Acetaminophen 500 MG Tab PO SCH ×3 (10:22→20:39)
--- NOTE | 2021-01-27 10:59 | PCM.HP.2 ---
H&P History of Present Illness - General Date of Service: 01/27/21 Admit Problem/Dx: Admission Diagnosis/Problem Admission Diagnosis/Problem UTI, Shingles - History of Present Illness Initial Comments - Free Text/Narative: Vanessa was brought to the ER from [facility] by EMS secondary to severe right sided/right flank pain. She recently had outbreak of shingles(first part of Jan) on right side started on her back and wrapped around under her right breast. Dr Peace put her on 2 medications and she states she has finished them but still having pain. She denies chest pain, shortness of breath, fever, dif ficulty urinating, diarrhea, constipation. Right sided pain has been present off and on for the last week but became more severe yesterday. She had been using Voltaren gel to area, helped a little bit but not gone. She has history of cholecystectomy, irritable bowel syndrome with diarrhea & constipation. Her last diarrhea stool was yesterday morning. She was more confused when in the ER yesterday as she could not remember her medications. She drinks about 2L/day of water. She just moved into [facility] on 01/18. She also has history of CVA and is due to have carotid surgery on left side, has appt in [place] on that she doesn't want to miss. NO history of Crohn's/UC. Right Abdomen Pain Score (Numeric/FACES): 6 - Related Data Allergies/Adverse Reactions: Allergies Allergy/AdvReac Type Severity Reaction Status Date / Time [id number]-[id number] Reductase Allergy Weakness Verified 01/26/21 19:46 Inhibitor [Qpknnuh-Foj-Iqb Reductase Inhibitor] Home Medications: Home Meds Ezetimibe [Zetia] 10 mg PO DAILY 03/23/20 [History] Gabapentin [Neurontin] 300 mg PO BEDTIME 03/23/20 [History] Insulin Glarg,Human.Rec.Analog [Lantus Solostar] 10 units SUBCUT DAILY 03/23/20 [History] Levothyroxine Sodium [Levothyroxine] 50 mcg PO ACBREAKFAST 03/23/20 [History] Lubiprostone [Amitiza] 24 mcg PO BIDMEALS 03/23/20 [History] Omeprazole 20 mg PO DAILY 03/23/20 [History] Ozempic 0.5 mg SUBCUT TH 03/23/20 [History] Aspirin 81 mg PO DAILY 12/06/20 [History] Melatonin 10 mg SL BEDTIME 12/06/20 [History] Sertraline [Zoloft] 100 mg PO BEDTIME 12/06/20 [History] polyethylene glycoL 3350 [MiraLAX] 17 gm PO DAILY 12/06/20 [History] Diclofenac Sodium [Voltaren 1% Gel] 2 gram TOP QID 01/26/21 [History] Lutein 10 mg PO DAILY 01/26/21 [History] Past Medical History HEENT History: Reports: Hard of Hearing, Impaired Vision Other HEENT History: wears glasses, has hearing aids does not have here Cardiovascular History: Reports: Hypertension Gastrointestinal History: Reports: Cholelithiasis, Chronic Diarrhea, Diverticulosis, GERD Genitourinary History: Reports: Pyelonephritis, Urinary Incontinence, Other (See Below) Other Genitourinary History: UTI currently taking antibiotics for has had since January [employer]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: Reports: Musculoskeletal History: Reports: Arthritis, Back Pain, Chronic, Other (See Below) Other Musculoskeletal History: cortisone shot in each arm for torn shoulder tendons and thumbs bilaterally Neurological History: Reports: CVA, Neuropathy, Diabetic Psychiatric History: Reports: Anxiety, Depression Endocrine/Metabolic History: Reports: Diabetes, Type II, Hypothyroidism - Infectious Disease History Infectious Disease History: Reports: Measles, Mumps - Past Surgical History HEENT Surgical History: Reports: Cataract Surgery GI Surgical History: Reports: Colonoscopy Female Surgical History: Reports: Hysterectomy Musculoskeletal Surgical History: Reports: None Social & Family History - Family History Family Medical History: No Pertinent Family History - Tobacco Use Tobacco Use Status *Q: Former Tobacco User Used Tobacco, but Quit: Yes Month/Year Tobacco Last Used: 1999 - Caffeine Use Caffeine Use: Reports: Coffee - Recreational Drug Use Recreational Drug Use: No - Living Situation & Occupation Living situation: Reports: H&P Review of Systems - Review of Systems: Review Of Systems: Comprehensive ROS is negative, except as noted in HPI. Exam - Exam Exam: See Below - Vital Signs Vital Signs: Last Vital Signs Temp 98.5 F 01/27/21 06:30 Pulse 66 01/27/21 06:30 Resp 16 01/27/21 06:30 BP 116/56 L 01/27/21 06:30 Pulse Ox 98 01/27/21 06:30 Weight: 132 lb 12.8 oz - Exam General: Alert, Oriented, Cooperative. No: Mild Distress HEENT: PERRLA, Conjunctiva Clear, EOMI, Hearing Intact, Mucosa Moist & [place] Neck: Trachea Midline Lungs: Clear to Auscultation, Normal Respiratory Effort Cardiovascular: Regular Rate, Regular Rhythm GI/Abdominal Exam: Normal Bowel Sounds, Soft, Non-Tender, No Distention. No: Guarding, Rebound (Female) Exam: Deferred Rectal (Female) Exam: Deferred Extremities: No Pedal Edema, Normal Capillary Refill Peripheral Pulses: 2+: Radial (L), Radial (R), Posterior Tibial (L), Posterior Tibial (R), Dorsalis Pedis (L), Dorsalis Pedis (R) Skin: Rash (Healing dry vesicles clustered along T8 dermatome largest area is on her back, small group at midaxillary line and under right breast(maximal tenderness of all clusters).) Neurological: Cranial Nerves Intact, Normal Speech, Normal Tone - Patient Data Lab Results Last 24 hrs: Laboratory Results - last 24 hr 01/26/21 01/26/21 01/26/21 Range/Units 13:45 13:45 14:10 WBC 5.9 (3.0-10.3) x10-3/uL RBC 4.55 (3.60-5.20) x10(6)uL Hgb 12.2 (11.4-15.5) g/dL Hct 37.7 (34.2-48.2) % MCV 82.8 (76.7-100.5) fL MCH 26.8 (23.9-33.9) pg MCHC 32.4 (31.9-34.8) g/dL RDW 13.8 (12.3-16.5) % Plt Count 379 (151-488) x10(3)uL MPV 5.7 L (7.1-12.4) fL Neut % (Auto) 65.7 (30.8-76.2) % Lymph % (Auto) 28.2 (18.4-52.1) % [place] % (Auto) 4.0 L (4.4-15.7) % Eos % (Auto) 1.7 (0.6-8.1) % Baso % (Auto) 0.4 (0.2-1.5) % Neut # (Auto) 3.9 (1.5-6.3) x10-3/uL Lymph # (Auto) 1.7 (1.0-4.4) x10-3/uL [place] # (Auto) 0.2 L (0.3-1.0) x10-3/uL Eos # (Auto) 0.1 (0.0-0.8) x10-3/uL Baso # (Auto) 0.0 (0.0-0.1) x10-3/uL Sodium 139 (135-145) mmol/L Potassium 4.3 (3.5-5.3) mmol/L Chloride 105 D (100-110) mmol/L Carbon Dioxide 28 (21-32) mmol/L BUN 12 (7-18) mg/dL Creatinine 1.3 H (0.55-1.02) mg/dL Est Cr Clr Drug Dosing 24.38 mL/min Estimated GFR (MDRD) 39 L (>60) BUN/Creatinine Ratio 9.2 (9-20) Glucose 168 H D (80-116) mg/dL Calcium 8.4 L (8.6-10.2) mg/dL Total Bilirubin 0.3 (0.1-1.3) mg/dL AST 15 (5-25) IU/L ALT 27 D (12-36) U/L Alkaline Phosphatase 99 (56-112) IU/L Total Protein 5.8 L (6.0-8.0) g/dL Albumin 3.1 L (3.2-4.6) g/dL Globulin 2.7 g/dL Albumin/Globulin Ratio 1.2 Urine Color Yellow (YELLOW) Urine Appearance Cloudy (CLEAR) Urine pH 6.5 (5.0-6.5) Ur Specific Goff 1.010 (1.010-1.025) Urine Protein Negative (NEGATIVE) mg/dL Urine Glucose (UA) Normal (NORMAL) mg/dL Urine Ketones Negative (NEGATIVE) mg/dL Urine Occult Blood Negative (NEGATIVE) Urine Nitrite Negative (NEGATIVE) Urine Bilirubin Negative (NEGATIVE) Urine Urobilinogen Normal (NEGATIVE) mg/dL Ur Leukocyte Esterase Large H (NEGATIVE) Urine RBC 5-10 H (0-5) Urine WBC 50-75 H (0-5) Ur Squamous Epith Cells Moderate H (NS,R,O) Urine Bacteria Many H (NS) SARS-CoV-2 RNA (CHAVEZ) (NEGATIVE) 01/26/21 Range/Units 16:38 WBC (3.0-10.3) x10-3/uL RBC (3.60-5.20) x10(6)uL Hgb (11.4-15.5) g/dL Hct (34.2-48.2) % MCV (76.7-100.5) fL MCH (23.9-33.9) pg MCHC (31.9-34.8) g/dL RDW (12.3-16.5) % Plt Count (151-488) x10(3)uL MPV (7.1-12.4) fL Neut % (Auto) (30.8-76.2) % Lymph % (Auto) (18.4-52.1) % [place] % (Auto) (4.4-15.7) % Eos % (Auto) (0.6-8.1) % Baso % (Auto) (0.2-1.5) % Neut # (Auto) (1.5-6.3) x10-3/uL Lymph # (Auto) (1.0-4.4) x10-3/uL [place] # (Auto) (0.3-1.0) x10-3/uL Eos # (Auto) (0.0-0.8) x10-3/uL Baso # (Auto) (0.0-0.1) x10-3/uL Sodium (135-145) mmol/L Potassium (3.5-5.3) mmol/L Chloride (100-110) mmol/L Carbon Dioxide (21-32) mmol/L BUN (7-18) mg/dL Creatinine (0.55-1.02) mg/dL Est Cr Clr Drug Dosing mL/min Estimated GFR (MDRD) (>60) BUN/Creatinine Ratio (9-20) Glucose (80-116) mg/dL Calcium (8.6-10.2) mg/dL Total Bilirubin (0.1-1.3) mg/dL AST (5-25) IU/L ALT (12-36) U/L Alkaline Phosphatase (56-112) IU/L Total Protein (6.0-8.0) g/dL Albumin (3.2-4.6) g/dL Globulin g/dL Albumin/Globulin Ratio Urine Color (YELLOW) Urine Appearance (CLEAR) Urine pH (5.0-6.5) Ur Specific Goff (1.010-1.025) Urine Protein (NEGATIVE) mg/dL Urine Glucose (UA) (NORMAL) mg/dL Urine Ketones (NEGATIVE) mg/dL Urine Occult Blood (NEGATIVE) Urine Nitrite (NEGATIVE) Urine Bilirubin (NEGATIVE) Urine Urobilinogen (NEGATIVE) mg/dL Ur Leukocyte Esterase (NEGATIVE) Urine RBC (0-5) Urine WBC (0-5) Ur Squamous Epith Cells (NS,R,O) Urine Bacteria (NS) SARS-CoV-2 RNA (CHAVEZ) Negative (NEGATIVE) Result Diagrams: 01/26/21 13:45 01/26/21 13:45 Rich Results Last 24 hrs: Microbiology 01/26/21 14:15 Urine Culture - Preliminary Urine, Catheterized Gram Negative Rods Sepsis Event Note - Evaluation Sepsis Screening Result: No Definite Risk - Focused Exam Vital Signs: Vital Signs Temp Pulse Resp BP Pulse Ox 01/27/21 06:30 98.5 F 66 16 116/56 L 98 01/26/21 23:10 97.3 F 68 16 144/62 H 100 *Q Meaningful Use (ADM) - VTE *Q VTE Mechanical Contraindications *Q: At Risk for Falls - VTE Risk Assess *Q Each Risk Factor Represents 1 Point: Obesity ( BMI > 25 kg/m2) Total Score 1 Point Risk Factors: 1 Each Risk Factor Represents 2 Points: None Total Score 2 Point Risk Factors: 0 Each Risk Factor Represents 3 Points: Age 75 Years or Greater Total Score 3 Point Risk Factors: 3 Each Risk Factor Represents 5 Points: None Total Score 5 Point Risk Factors: 0 Venous Thromboembolism Risk Factor Score *Q: 4 - Problem List (1) Urinary tract infection SNOMED Code(s): 36936485 ICD Code: N39.0 - URINARY TRACT INFECTION, SITE NOT SPECIFIED Status: Acute Current Visit: Yes Problem Details: Gram negative rods on culture, sensitivities pending. Qualifiers: Urinary tract infection type: acute cystitis Hematuria presence: with hematuria Qualified Code(s): N30.01 - Acute cystitis with hematuria (2) Shingles rash SNOMED Code(s): 3250789 ICD Code: B02.9 - ZOSTER WITHOUT COMPLICATIONS Status: Acute Current Visit: Yes Onset Date: ~01/08/21 Problem Details: vesicles have dried up but rash is still present, still having some neuralgia pain. (3) Postherpetic neuralgia SNOMED Code(s): 9348073 ICD Code: B02.29 - OTHER POSTHERPETIC NERVOUS SYSTEM INVOLVEMENT Status: Acute Current Visit: Yes Problem Details: T8 dermatome (4) Ileitis SNOMED Code(s): 94072681 ICD Code: K52.9 - NONINFECTIVE GASTROENTERITIS AND COLITIS, UNSPECIFIED Sta tus: Acute Current Visit: Yes (5) Weakness SNOMED Code(s): 54737428 ICD Code: R53.1 - WEAKNESS Status: Acute Current Visit: Yes (6) Anxiety, generalized SNOMED Code(s): 59673871 ICD Code: F41.1 - GENERALIZED ANXIETY DISORDER Status: Chronic Current Visit: Yes (7) Irritable bowel syndrome with both constipation and diarrhea SNOMED Code(s): 37723898 ICD Code: K58.2 - MIXED IRRITABLE BOWEL SYNDROME Status: Chronic Current Visit: Yes (8) History of CVA (cerebrovascular accident) SNOMED Code(s): 098541704 ICD Code: Z86.73 - PRSNL HX OF TIA (TIA), AND CEREB INFRC W/O RESID DEFICITS Status: Chronic Current Visit: Yes Problem List Initiated/Reviewed/Updated: Yes Orders Last 24hrs: Active Orders 24 hr Category Date Time Status Patient Status [ADT] Routine ADT 01/26/21 19:05 Active Accu Check [Blood Glucose Check, Bedside] [RC] 07,17 Care 01/26/21 19:46 Active Antiembolic Devices [RC] .PRN Care 01/26/21 19:06 Active Pulse Oximetry [RC] PRN Care 01/26/21 19:05 Active Vital Signs [RC] 00,04,08,12,16,20 Care 01/26/21 19:05 Active Regular Diet [DIET] Diet 01/27/21 Breakfast Active Abdomen Pelvis w Cont [CT] Stat Exams 01/26/21 14:09 Taken BASIC METABOLIC PANEL,BMP [CHEM] Routine Lab 01/28/21 06:00 Ordered CULTURE URINE [RM] Stat Lab 01/26/21 14:15 Results Acetaminophen [Tylenol Extra Strength] Med 01/27/21 09:15 Active 500 mg PO Q6H Aspirin Med 01/27/21 09:00 Active 81 mg PO DAILY Ciprofloxacin in D5W [Cipro in D5W 400 MG/200 ML] 400 Med 01/26/21 15:45 Active mg Premix Bag 1 bag IV Q24H Dextrose 50% in Water Med 01/26/21 19:10 Active 50 ml IVPUSH ASDIRECTED PRN Dextrose 50% in Water Med 01/26/21 19:15 Active 50 ml IVPUSH ASDIRECTED PRN Enoxaparin [Lovenox] Med 01/26/21 19:30 Active 30 mg SUBCUT Q24H Gabapentin [Neurontin] Med 01/26/21 21:00 Active 300 mg PO BEDTIME Glucagon,Human Recombinant [GlucaGen] Med 01/26/21 19:10 Active 1 mg IM ASDIRECTED PRN Glucagon,Human Recombinant [GlucaGen] Med 01/26/21 19:15 Active 1 mg IM ASDIRECTED PRN Ibuprofen [Motrin] Med 01/27/21 09:15 Active 200 mg PO Q6H Insulin Glarg,Human.Rec.Analog [LantUS Solostar] Med 01/26/21 19:15 Active 10 units SUBCUT DAILY Insulin Lispro [HumaLOG] Med 01/27/21 08:00 Active See Protocol SUBCUT TIDMEALS Levothyroxine [Synthroid] Med 01/27/21 06:00 Active 50 mcg PO DAILY@0600 Lidocaine 4% [Aspercreme 4%] Med 01/27/21 21:00 Active 1 each TOP BEDTIME Lubiprostone [Amitiza] Med 01/27/21 08:00 Hold 24 mcg PO BIDMEALS Lutein Med 01/27/21 09:00 Active 10 mg PO DAILY Melatonin Med 01/26/21 21:00 Active 9 mg PO BEDTIME Menthol/Methyl Salicylate [Icy Hot Cream] Med 01/26/21 23:00 Active 1 gm TOP ASDIRECTED PRN Ondansetron [Zofran] Med 01/26/21 13:12 Active 4 mg IVPUSH Q4H PRN Ozempic Med 01/31/21 19:10 Hold 0.5 mg SUBCUT TH Pantoprazole [ProTONIX] Med 01/27/21 09:00 Active 40 mg PO DAILY Remove Patch Med 01/28/21 09:00 Active 1 ea TRDERM DAILY Sertraline [Zoloft] Med 01/26/21 21:00 Active 100 mg PO BEDTIME hydrALAZINE [Apresoline] Med 01/26/21 13:49 Active 10 mg IVPUSH Q6H PRN polyethylene glycoL 3350 [MiraLAX] Med 01/27/21 09:00 Active 17 gm PO DAILY Convert IV to Peripheral Lock [Convert IV to Saline Oth 01/27/21 10:36 Ordered Lock] [OM.PC] Routine DVT/VTE Prophylaxis Reflex [OM.PC] Per Unit Routine Oth 01/26/21 19:05 Ordered Resuscitation Status Routine Resus Stat 01/26/21 19:05 Ordered Medication Orders Acetaminophen (Acetaminophen 500 Mg Tab) 500 mg PO Q6H [facility] Last Admin: 01/27/21 10:22 Dose: 500 mg Documented by: GIGI Aspirin (Aspirin 81 Mg Tab.Chew) 81 mg PO DAILY [facility] Last Admin: 01/27/21 08:43 Dose: 81 mg Documented by: GIGI Dextrose/Water (50% Dextrose In Water 50 Ml Syringe) 50 ml IVPUSH ASDIRECTED PRN PRN Reason: Hypoglycemia Dextrose/Water (50% Dextrose In Water 50 Ml Syringe) 50 ml IVPUSH ASDIRECTED PRN PRN Reason: Hypoglycemia Enoxaparin Sodium (Enoxaparin 30 Mg/0.3 Ml Syringe) 30 mg SUBCUT Q24H [facility] Last Admin: 01/26/21 20:38 Dose: 30 mg Documented by: MECHELLE Gabapentin (Gabapentin 300 Mg Cap) 300 mg PO BEDTIME [facility] Last Admin: 01/26/21 21:21 Dose: 300 mg Documented by: MECHELLE Glucagon (Glucagon,Human Recombinant 1 Mg Vial) 1 mg IM ASDIRECTED PRN PRN Reason: Hypoglycemia Glucagon (Glucagon,Human Recombinant 1 Mg Vial) 1 mg IM ASDIRECTED PRN PRN Reason: Hypoglycemia Hydralazine HCl (Hydralazine 20 Mg/Ml Sdv) 10 mg IVPUSH Q6H PRN PRN Reason: Hypertension Last Admin: 01/26/21 14:23 Dose: 10 mg Documented by: CHANTELLE Ciprofloxacin/Dextrose 400 mg/ (Premix) 200 mls @ 200 mls/hr IV Q24H [facility] Last Admin: 01/26/21 15:59 Dose: 200 mls/hr Documented by: CHANTELLE Ibuprofen (Ibuprofen 200 Mg Tab) 200 mg PO Q6H [facility] Last Admin: 01/27/21 10:22 Dose: 200 mg Documented by: GIGI Insulin Glargine (Insulin Glargine,Human Rec. Analog 100 Units/Ml 3 Ml Pen) 10 units SUBCUT DAILY [facility] Last Admin: 01/27/21 08:41 Dose: 10 units Documented by: GIGI Cosigned by: MABEL Admin: 01/26/21 20:37 Dose: Not Given Documented by: MECHELLE Insulin Human Lispro (Insulin Lispro 100 Unit/Ml 3 Ml Kwikpen) 0 unit SUBCUT TIDMEALS [facility]; Protocol Last Admin: 01/27/21 08:39 Dose: Not Given Documented by: GIGI Levothyroxine Sodium (Levothyroxine 50 Mcg Tab) 50 mcg PO DAILY@0600 [facility] Last Admin: 01/27/21 06:34 Dose: 50 mcg Documented by: MECHELLE Lidocaine (Lidocaine 4% 1 Each Patch) 1 each TOP BEDTIME [facility] Lubiprostone (Lubiprostone 24 Mcg Cap) 24 mcg PO BIDMEALS [facility] Lutein (Lutein 10 Mg Tab) 10 mg PO DAILY [facility] Melatonin (Melatonin 3 Mg Tab) 9 mg PO BEDTIME [facility] Last Admin: 01/26/21 21:22 Dose: 9 mg Documented by: MECHELLE Methyl Salicylate (Menthol/Methyl Salicylate 85 Gm Tube) 1 gm TOP ASDIRECTED PRN PRN Reason: Neck and back ache. Last Admin: 01/26/21 23:15 Dose: 1 applic Documented by: MECHELLE Miscellaneous Information (Remove Lidocaine Patch) 1 ea TRDERM DAILY [facility] Non-Formulary Medication (Ozempic) 0.5 mg SUBCUT TH [facility] Ondansetron HCl (Ondansetron 4 Mg/2 Ml Sdv) 4 mg IVPUSH Q4H PRN PRN Reason: Nausea/Vomiting Last Admin: 01/26/21 13:19 Dose: 4 mg Documented by: CHANTELLE Pantoprazole Sodium (Pantoprazole 40 Mg Tab.Cr) 40 mg PO DAILY [facility] Last Admin: 01/27/21 08:43 Dose: 40 mg Documented by: GIGI Polyethylene Glycol (Polyethylene Glycol 3350 Powder 17 Gm Packet) 17 gm PO DAILY [facility] Last Admin: 01/27/21 08:43 Dose: 17 gm Documented by: GIGI Sertraline HCl (Sertraline 100 Mg Tab) 100 mg PO BEDTIME [facility] Last Admin: 01/26/21 21:22 Dose: 100 mg Documented by: MECHELLE Assessment/Plan Comment:: 1. Admit for UTI, weakness, Shingles with post herpetic neuralgia, Ileitis. 2. UTI: Ciprofloxacin 400 mg IV daily. UC gram negative rods, sensitivities pending. Saline lock as she is drinking well and Cr 1.3, BUN 12. Labs tomorrow. 3. Ileitis: history of irritable bowel but no Crohn's. most likely viral in setting of normal WBC. Discontinued Metronidazole. Has not had episode of diarrhea since admission, order stool culture. 4. Shingles/postherpetic neuralgia: rash still healing, Lidocaine patch at bedtime to affected area. Tylenol/Ibuprofen 500/200 mg q6h. 5. DM: Accuchecks bid. Lantus 10 units daily, Humalog sliding scale. Ozempic daily. 6. Diet: Consistent Carb. 7. Activity: up with assistance & to chair. 8. DVT prophylaxis: Lovenox 30 units sq daily. 9. CODE STATUS: DNR/DNI. 10. Discharge planning: anticipate 24-48 hours of IV antibiotics for UTI. Adjust treatments as necessary. - Mortality Measure Prognosis:: Good
[2021-01-27] MEDS: Ciprofloxacin in D5W 400 MG in Premix Bag 1 BAG IV SCH ×2 (14:51)
[2021-01-27] MEDS ORDERED: busPIRone 5 MG Tab ONE (16:18)
[2021-01-27] MEDS: Ondansetron 4 MG/2 ML SDV IVPUSH PRN ×2 (16:20→16:42)
[2021-01-27] MEDS: busPIRone 5 MG Tab PO SCH ×2 (16:21→20:10)
[2021-01-27] MEDS: Enoxaparin 30 MG/0.3 ML Syringe SUBCUT SCH (19:42)
[2021-01-27] MEDS: Gabapentin 300 MG Cap PO SCH (20:11)
[2021-01-27] MEDS: Melatonin 3 MG Tab PO SCH (20:11)
[2021-01-27] MEDS: Sertraline 100 MG Tab PO SCH (20:39)
[2021-01-27] MEDS ORDERED: Lidocaine 4% 1 each Patch TOP SCH (21:00)
[2021-01-28] MEDS: Acetaminophen 500 MG Tab PO SCH ×2 (03:05→09:33)
[2021-01-28] MEDS: Ibuprofen 200 MG Tab PO SCH ×2 (03:07→09:31)
[2021-01-28] MEDS: Levothyroxine 50 MCG Tab PO SCH (06:30)
[2021-01-28] MEDS ORDERED: Gabapentin 100 MG Cap PO SCH (07:00)
[2021-01-28] MEDS ORDERED: Lidocaine 4% 1 each Patch TOP SCH (08:21)
[2021-01-28] MEDS: Insulin Lispro 100 Unit/ML 3 ML KwikPen SUBCUT SCH (09:29)
[2021-01-28] MEDS: Aspirin 81 MG Tab.Chew PO SCH (09:30)
[2021-01-28] MEDS: Polyethylene Glycol 3350 Powder 17 GM Packet PO SCH ×2 (09:31→10:37)
[2021-01-28] MEDS: busPIRone 5 MG Tab PO SCH (09:31)
[2021-01-28] MEDS: Insulin Glargine,Human Rec. Analog 100 Units/ML 3 ML Pen SUBCUT SCH (09:43)
--- NOTE | 2021-01-28 16:23 | PCM.DCSUM1 ---
Discharge Summary - Hospital Course HPI Initial Comments: Vanessa was brought to the ER from [facility] by EMS secondary to severe right sided/right flank pain. She recently had outbreak of shingles(first part of Jan) on right side started on her back and wrapped around under her right breast. Dr Peace put her on 2 medications and she states she has finished them but still having pain. She denies chest pain, shortness of breath, fever, difficulty urinating, diarrhea, constipation. Right sided pain has been present off and on for the last week but became more severe yesterday. She had been using Voltaren gel to area, helped a little bit but not gone. She has history of cholecystectomy, irritable bowel syndrome with diarrhea & constipation. Her last diarrhea stool was yesterday morning. She was more confused when in the ER yesterday as she could not remember her medications. She drinks about 2L/day of water. She just moved into [facility] on 01/18. She also has history of CVA and is due to have carotid surgery on left side, has appt in [place] on that she doesn't want to miss. NO history of Crohn's/UC. Diagnosis: Stroke: No - Discharge Data Discharge Date: 01/28/21 ([facility]) Discharge Disposition: Home, Home Health Agency 06 Condition: Stable - Referral to Home Health Date of Face to Face Encounter: 01/28/21 Reason for Homebound Status: [facility] Primary Care Physician: Neris Peace MD Skilled Need: nursing for medication, education - Discharge Diagnosis/Problem(s) (1) Urinary tract infection SNOMED Code(s): 14383384 ICD Code: N39.0 - URINARY TRACT INFECTION, SITE NOT SPECIFIED Status: Acute Problem Details: Klebisella, sensitive to ciprofloxacin. Qualifiers: Urinary tract infection type: acute cystitis Hematuria presence: with hematuria Qualified Code(s): N30.01 - Acute cystitis with hematuria (2) Shingles rash SNOMED Code(s): 4542253 ICD Code: B02.9 - ZOSTER WITHOUT COMPLICATIONS Status: Acute Onset Date: ~01/08/21 Problem Details: vesicles have dried up but rash is still present, still having some neuralgia pain. (3) Postherpetic neuralgia SNOMED Code(s): 9517335 ICD Code: B02.29 - OTHER POSTHERPETIC NERVOUS SYSTEM INVOLVEMENT Status: Acute Problem Details: T8 dermatome (4) Ileitis SNOMED Code(s): 21336720 ICD Code: K52.9 - NONINFECTIVE GASTROENTERITIS AND COLITIS, UNSPECIFIED Status: Acute (5) Weakness SNOMED Code(s): 42426038 ICD Code: R53.1 - WEAKNESS Status: Acute (6) Anxiety, generalized SNOMED Code(s): 75889498 ICD Code: F41.1 - GENERALIZED ANXIETY DISORDER Status: Chronic (7) Irritable bowel syndrome with both constipation and diarrhea SNOMED Code(s): 17743322 ICD Code: K58.2 - MIXED IRRITABLE BOWEL SYNDROME Status: Chronic (8) History of CVA (cerebrovascular accident) SNOMED Code(s): 340607979 ICD Code: Z86.73 - PRSNL HX OF TIA (TIA), AND CEREB INFRC W/O RESID DEFICITS Status: Chronic - Patient Summary/Data Hospital Course: Right side pain was located along T8 dermatome that corresponded to recent shingles infection, vesicles are dried. Started Gabapentin 100 mg at 7am and 1400 in addition to her bedtime 300 mg dose. Also added Lidocaine 4% patch under right breast as that was bothering her the most, she stated helped very much and when removed this morning, pain was returning. She had ileitis on CT, no diverticulitis, most cases are viral unless in setting of Crohn's which she doesn't have so Metronidazole was discontinued. Urine culture came back positive for Klebsiella, sensitive to Ciprofloxacin, will go home on 250 mg q12h for 3 more days. She was very anxious while here, already on Zoloft so added Buspar 5 mg tid, she stated it helped her racing thoughts, felt she had more control over them. Repeat covid test today was negative, will have surgery on for carotid stenosis, Follow up with Dr Peace in 1 week to reassess postherpetic neuralgia and adjust medications as needed. - Patient Instructions Diet: Usual Diet as Tolerated Activity: As Tolerated Showering/Bathing: May Shower Notify Provider of: Fever, Increased Pain, Nausea and/or Vomiting Other/Special Instructions: Follow up with Dr Peace in 1 week to recheck your pain from shingles. You had urine infection, take Ciprofloxacin 250 mg every 12 hours for 3 days. Started Gabapentin 100 mg during the day at 7 am and 2pm to help with nerve pain secondary to shingles. Started Buspar 5 mg three times a day to help with your anxiety. Started Lidocaine 5% patch to your right back & under right breast to also help with nerve pain at night. - Discharge Plan *PRESCRIPTION DRUG MONITORING PROGRAM REVIEWED*: Yes *COPY OF PRESCRIPTION DRUG MONITORING REPORT IN PATIENT GERARDO: Not Applicable Prescriptions/Med Rec: Lidocaine 4% [Aspercreme 4%] 2 each TP BEDTIME #10 patch busPIRone [Buspar] 5 mg PO TID #90 tablet Ciprofloxacin HCl [Cipro] 250 mg PO Q12H #6 tablet Gabapentin [Neurontin] 100 mg PO ,14 7 Days #14 cap Home Medications: Home Meds Ezetimibe [Zetia] 10 mg PO BEDTIME 03/23/20 [History] Gabapentin [Neurontin] 300 mg PO BEDTIME 03/23/20 [History] Insulin Glarg,Human.Rec.Analog [Lantus Solostar] 10 units SUBCUT DAILY 03/23/20 [History] Levothyroxine Sodium [Levothyroxine] 50 mcg PO ACBREAKFAST 03/23/20 [History] Lubiprostone [Amitiza] 24 mcg PO BID 03/23/20 [History] Omeprazole 20 mg PO BEDTIME 03/23/20 [History] Ozempic 0.5 mg SUBCUT TH 03/23/20 [History] Aspirin 81 mg PO DAILY 12/06/20 [History] Melatonin 10 mg PO BEDTIME 12/06/20 [History] Sertraline [Zoloft] 50 mg PO BEDTIME 12/06/20 [History] polyethylene glycoL 3350 [MiraLAX] 17 gm PO DAILY 12/06/20 [History] Diclofenac Sodium [Voltaren 1% Gel] 2 gram TOP QID 01/26/21 [History] Lutein 10 mg PO DAILY 01/26/21 [History] Acetaminophen [Tylenol Extra Strength] 500 mg PO Q6H tablet 01/28/21 [Rx] Acetaminophen [Tylenol Extra Strength] 500 mg PO Q8H PRN 01/28/21 [History] Ciprofloxacin HCl [Cipro] 250 mg PO Q12H #6 tablet 01/28/21 [Rx] Gabapentin [Neurontin] 100 mg PO 07,14 7 Days #14 cap 01/28/21 [Rx] Lidocaine 4% [Aspercreme 4%] 2 each TP BEDTIME #10 patch 01/28/21 [Rx] Loratadine [Claritin] 10 mg PO DAILY PRN 01/28/21 [History] Magnesium Hydroxide [Milk of Magnesia] 30 ml PO DAILY PRN 01/28/21 [History] Sennosides [Senna] 17.2 mg PO DAILY PRN 01/28/21 [History] busPIRone [Buspar] 5 mg PO TID #90 tablet 01/28/21 [Rx] Oxygen Therapy Mode: Room Air Patient Handouts: Acute Back Pain, Adult, Fall Prevention in Hospitals, Adult, Venous Thromboembolism Prevention Forms: ED Department Discharge Referrals: Neris ePace MD [Primary Care Provider] - - Discharge Summary/Plan Comment DC Time >30 min.: No Total # of Minutes for Discharge Time: 10 min - General Info Date of Service: 01/28/21 Subjective Update: She stated she noticed her thoughts weren't racing like they usually do at bedtime, she slept til about 2 am, then was more resting before she feel asleep at 5. She states she hadn't slept well since her first couple of nights at [facility]. She stated the lidocaine does help with pain in under her right breast and wanted patch for right back. Added Gabapentin during the day to help with postherpetic neuralgia. She is on Gabapentin 300 mg at bedtime for DM neuropathy. Feeling much better, wants to go home. Has upcoming surgery on that she doesn't want postponed. - Patient Data Vitals - Most Recent: Last Vital Signs Temp 97.6 F 01/28/21 07:45 Pulse 67 01/28/21 07:45 Resp 18 01/28/21 07:45 BP 160/69 H 01/28/21 07:45 Pulse Ox 97 01/28/21 07:45 Weight - Most Recent: 132 lb 12.8 oz Lab Results - Last 24 hrs: Laboratory Results - last 24 hr 01/27/21 01/27/21 01/28/21 Range/Units 16:24 18:04 06:11 Sodium 140 (135-145) mmol/L Potassium 4.4 (3.5-5.3) mmol/L Chloride 106 (100-110) mmol/L Carbon Dioxide 27 (21-32) mmol/L BUN 12 (7-18) mg/dL Creatinine 1.4 H (0.55-1.02) mg/dL Est Cr Clr Drug Dosing 22.64 mL/min Estimated GFR (MDRD) 36 L (>60) BUN/Creatinine Ratio 8.6 L (9-20) Glucose 106 (80-116) mg/dL POC Glucose 108 88 (80-116) mg/dL Calcium 8.5 L (8.6-10.2) mg/dL SARS-CoV-2 RNA (CHAVEZ) (NEGATIVE) 01/28/21 Range/Units 08:56 Sodium (135-145) mmol/L Potassium (3.5-5.3) mmol/L Chloride (100-110) mmol/L Carbon Dioxide (21-32) mmol/L BUN (7-18) mg/dL Creatinine (0.55-1.02) mg/dL Est Cr Clr Drug Dosing mL/min Estimated GFR (MDRD) (>60) BUN/Creatinine Ratio (9-20) Glucose (80-116) mg/dL POC Glucose (80-116) mg/dL Calcium (8.6-10.2) mg/dL SARS-CoV-2 RNA (CHAVEZ) Negative (NEGATIVE) ISABEL Results - Last 24 hrs: Microbiology 01/26/21 14:15 Urine Culture - Final Urine, Catheterized Klebsiella Pneumoniae Med Orders - Current: Current Medications Discontinued Medications Acetaminophen (Acetaminophen 500 Mg Tab) 500 mg PO Q6H [facility] Last Admin: 01/28/21 09:33 Dose: 500 mg Documented by: Aspirin (Aspirin 81 Mg Tab.Chew) 81 mg PO DAILY [facility] Last Admin: 01/28/21 09:30 Dose: 81 mg Documented by: Buspirone HCl (Buspirone 5 Mg Tab) 5 mg PO TID [facility] Last Admin: 01/28/21 09:31 Dose: 5 mg Documented by: Buspirone HCl (Buspirone 5 Mg Tab) Confirm Administered Dose 5 mg .ROUTE .STK- MED ONE Stop: 01/27/21 16:19 Last Admin: 01/27/21 16:21 Dose: Not Given Documented by: Dextrose/Water (50% Dextrose In Water 50 Ml Syringe) 50 ml IVPUSH ASDIRECTED PRN PRN Reason: Hypoglycemia Dextrose/Water (50% Dextrose In Water 50 Ml Syringe) 50 ml IVPUSH ASDIRECTED PRN PRN Reason: Hypoglycemia Enoxaparin Sodium (Enoxaparin 30 Mg/0.3 Ml Syringe) 30 mg SUBCUT Q24H [facility] Last Admin: 01/27/21 19:42 Dose: 30 mg Documented by: Gabapentin (Gabapentin 300 Mg Cap) 300 mg PO BEDTIME [facility] Last Admin: 01/27/21 20:11 Dose: 300 mg Documented by: Gabapentin (Gabapentin 100 Mg Cap) 100 mg PO 07,14 [facility] Last Admin: 01/28/21 07:02 Dose: 100 mg Documented by: Glucagon (Glucagon,Human Recombinant 1 Mg Vial) 1 mg IM ASDIRECTED PRN PRN Reason: Hypoglycemia Glucagon (Glucagon,Human Recombinant 1 Mg Vial) 1 mg IM ASDIRECTED PRN PRN Reason: Hypoglycemia Hydralazine HCl (Hydralazine 20 Mg/Ml Sdv) 10 mg IVPUSH Q6H PRN PRN Reason: Hypertension Last Admin: 01/26/21 14:23 Dose: 10 mg Documented by: Hydromorphone HCl (Hydromorphone 2 Mg/Ml Sdv) 0.5 mg IVPUSH Q4H PRN PRN Reason: Pain Last Admin: 01/27/21 06:50 Dose: 0.5 mg Documented by: Sodium Chloride (Normal Saline) 1,000 mls @ 75 mls/hr IV ASDIRECTED [facility] Last Admin: 01/26/21 18:20 Dose: 75 mls/hr Documented by: Ciprofloxacin/Dextrose 400 mg/ (Premix) 200 mls @ 200 mls/hr IV Q24H [facility] Last Admin: 01/27/21 14:51 Dose: 200 mls/hr Documented by: Metronidazole 500 mg/ Premix 100 mls @ 100 mls/hr IV Q8H [facility] Stop: 02/04/21 23:00 Last Admin: 01/27/21 08:35 Dose: 100 mls/hr Documented by: Ibuprofen (Ibuprofen 200 Mg Tab) 200 mg PO Q6H [facility] Last Admin: 01/28/21 09:31 Dose: 200 mg Documented by: Insulin Glargine (Insulin Glargine,Human Rec. Analog 100 Units/Ml 3 Ml Pen) 10 units SUBCUT DAILY [facility] Last Admin: 01/28/21 09:43 Dose: 10 units Documented by: Insulin Human Lispro (Insulin Lispro 100 Unit/Ml 3 Ml Kwikpen) 0 unit SUBCUT TIDMEALS [facility]; Protocol Last Admin: 01/28/21 09:29 Dose: Not Given Documented by: Iopamidol (Iopamidol 755 Mg/Ml 75 Ml Bottle) 75 ml IV ASDIRECTED ONE Stop: 01/26/21 14:51 Last Admin: 01/26/21 15:07 Dose: 75 ml Documented by: Levothyroxine Sodium (Levothyroxine 50 Mcg Tab) 50 mcg PO DAILY@0600 [facility] Last Admin: 01/28/21 06:30 Dose: 50 mcg Documented by: Lidocaine (Lidocaine 4% 1 Each Patch) 1 each TOP BEDTIME [facility] Last Admin: 01/27/21 20:11 Dose: 1 each Documented by: Lidocaine (Lidocaine 4% 1 Each Patch) 1 each TOP BEDTIME [facility]OOK[facility] Lubiprostone (Lubiprostone 24 Mcg Cap) 24 mcg PO BIDMEALS [facility] Lutein (Lutein 10 Mg Tab) 10 mg PO DAILY [facility] Last Admin: 01/28/21 09:31 Dose: 10 mg Documented by: Melatonin (Melatonin 3 Mg Tab) 9 mg PO BEDTIME [facility] Last Admin: 01/27/21 20:11 Dose: 9 mg Documented by: Methyl Salicylate (Menthol/Methyl Salicylate 85 Gm Tube) 1 gm TOP ASDIRECTED PRN PRN Reason: Neck and back ache. Last Admin: 01/26/21 23:15 Dose: 1 applic Documented by: Miscellaneous Information (Remove Lidocaine Patch) 1 ea TRDERM DAILY [facility] Last Admin: 01/28/21 09:44 Dose: 1 ea Documented by: Morphine Sulfate (Morphine 2 Mg/Ml Syringe) 2 mg IVPUSH ONETIME ONE Stop: 01/26/21 13:12 Last Admin: 01/26/21 13:19 Dose: 2 mg Documented by: Morphine Sulfate (Morphine 2 Mg/Ml Syringe) 2 mg IVPUSH ONETIME ONE Stop: 01/26/21 13:43 Last Admin: 01/26/21 13:48 Dose: 2 mg Documented by: Morphine Sulfate (Morphine 2 Mg/Ml Syringe) 2 mg IVPUSH ONETIME ONE Stop: 01/26/21 15:26 Last Admin: 01/26/21 15:30 Dose: 2 mg Documented by: Non-Formulary Medication (Melatonin [Melatonin]) 10 mg SL BEDTIME [facility] Last Admin: 01/27/21 01:16 Dose: Not Given Documented by: Non-Formulary Medication (Ozempic) 0.5 mg SUBCUT TH [facility] Ondansetron HCl (Ondansetron 4 Mg/2 Ml Sdv) 4 mg IVPUSH Q4H PRN PRN Reason: Nausea/Vomiting Last Admin: 01/27/21 16:20 Dose: 4 mg Documented by: Pantoprazole Sodium (Pantoprazole 40 Mg Tab.Cr) 40 mg PO DAILY [facility] Last Admin: 01/27/21 08:43 Dose: 40 mg Documented by: Pantoprazole Sodium (Pantoprazole 40 Mg Tab.Cr) 40 mg PO BEDTIME [facility] Polyethylene Glycol (Polyethylene Glycol 3350 Powder 17 Gm Packet) 17 gm PO DAILY [facility] Last Admin: 01/28/21 10:37 Dose: Not Given Documented by: Sertraline HCl (Sertraline 100 Mg Tab) 100 mg PO BEDTIME [facility] Last Admin: 01/27/21 20:39 Dose: 100 mg Documented by: Trolamine Salicylate (Trolamine Salicylate/Aloe Vera 10% Crm 85 Gm Tube) 10 gm TOP Q6H PRN PRN Reason: Pain (mild 1-3) - Exam General: Reports: Alert, Oriented, Cooperative, No Acute Distress Lungs: Reports: Clear to Auscultation, Normal Respiratory Effort Cardiovascular: Reports: Regular Rate, Regular Rhythm GI/Abdominal Exam: Normal Bowel Sounds, Soft, No Distention, Tender (under right breast(shingles rash overlying area).) Extremities: No Pedal Edema, Normal Capillary Refill *Q Meaningful Use (DIS) - VTE *Q VTE Mechanical Contraindications *Q: At Risk for Falls
[2021-01-28] MEDS ORDERED: Pantoprazole 40 MG Tab.CR PO SCH (21:00)
[2021-01-31] MEDS ORDERED: OZEMPIC 0.5 MG SUBCUT SCH (19:10)
== END 2021-01-28 11:07 | disposition home health service (06) | DRG 690 ==
LOC: FB.ED 13:05 → FB.MS 16:22
PROVIDERS: ADMIT Student in an Organized Health Care Education/Training Program; ATTEND Family Medicine
DX: K57.92 Diverticulitis of intestine, part unspecified, without perforation or abscess without bleeding (principal); N39.0 Urinary tract infection, site not specified; R53.1 Weakness; N30.01 Acute cystitis with hematuria; B02.29 Other postherpetic nervous system involvement; K52.9 Noninfective gastroenteritis and colitis, unspecified; B02.9 Zoster without complications; F41.1 Generalized anxiety disorder; B96.1 Klebsiella pneumoniae [K. pneumoniae] as the cause of diseases classified elsewhere; E11.40 Type 2 diabetes mellitus with diabetic neuropathy, unspecified; H91.90 Unspecified hearing loss, unspecified ear; F32.9 Major depressive disorder, single episode, unspecified; H54.7 Unspecified visual loss; Z20.822 Contact with and (suspected) exposure to COVID-19; I10 Essential (primary) hypertension; K21.9 Gastro-esophageal reflux disease without esophagitis; K57.90 Diverticulosis of intestine, part unspecified, without perforation or abscess without bleeding; Z66 Do not resuscitate; R32 Unspecified urinary incontinence; F41.9 Anxiety disorder, unspecified; F32.A Depression, unspecified; E11.42 Type 2 diabetes mellitus with diabetic polyneuropathy; M19.90 Unspecified osteoarthritis, unspecified site; E03.9 Hypothyroidism, unspecified; M54.9 Dorsalgia, unspecified; G89.29 Other chronic pain; Z87.891 Personal history of nicotine dependence; Z98.49 Cataract extraction status, unspecified eye; Z86.73 Personal history of transient ischemic attack (TIA), and cerebral infarction without residual deficits; Z90.710 Acquired absence of both cervix and uterus; Z88.8 Allergy status to other drugs, medicaments and biological substances; Z79.4 Long term (current) use of insulin; Z79.82 Long term (current) use of aspirin; Z79.899 Other long term (current) drug therapy; Z79.890 Hormone replacement therapy
CPT/HCPCS: 36415; 74177; 80053; 81001; 85025; 87086; 87186; J0360; J0744; J2270 ×3; J2405; J3490; J7030; Q9967; 80048; 82947; 87045; 87046; 87088; 87427; 96365; 96375; 96376; 99285-25; A9270-GY; J1170; J1650; J1815; J1815-GY; U0002

== ENCOUNTER 2021-12-08 12:06 | Emergency (ER) | payer MEDICAID, MEDICARE ==
[2021-12-08 13:05] LABS: ESTIMATED GFR 35 mL/min (>60)
[2021-12-08] MEDS ORDERED: Acetaminophen 500 MG Tab PO ONE (13:52)
== END 2021-12-08 15:15 | disposition home or self-care (01) ==
LOC: FB.ED 12:06
DX: U07.1 COVID-19 (principal); R82.81 Pyuria; E11.40 Type 2 diabetes mellitus with diabetic neuropathy, unspecified; E03.9 Hypothyroidism, unspecified; I10 Essential (primary) hypertension; Z88.6 Allergy status to analgesic agent; Z79.899 Other long term (current) drug therapy; Z79.4 Long term (current) use of insulin; Z79.82 Long term (current) use of aspirin; Z90.710 Acquired absence of both cervix and uterus
CPT/HCPCS: 36415; 80048; 81001; 84484; 85027; 87086; 99285; A9270-GY; U0002

== ENCOUNTER 2023-01-02 14:24 | Emergency (ER) | payer MEDICAID ==
[2023-01-02] MEDS ORDERED: Lidocaine 2% 20 ML MDV INFILT ONE (14:25)
== END 2023-01-02 15:42 | disposition home or self-care (01) ==
LOC: FB.ED 14:24
DX: L76.22 Postprocedural hemorrhage of skin and subcutaneous tissue following other procedure (principal); I10 Essential (primary) hypertension; E11.40 Type 2 diabetes mellitus with diabetic neuropathy, unspecified; Z86.16 Personal history of COVID-19; Z88.8 Allergy status to other drugs, medicaments and biological substances
CPT/HCPCS: 12001; 99282; 99283

== ENCOUNTER 2024-07-24 09:55 | Emergency (ER) | payer MEDICARE ==
[2024-07-24 10:46] LABS: BASOPHILS PERCENT AUTO 0.3 % (0.2-1.5); EOSINOPHILS PERCENT AUTO 0.3 % (0.6-8.1); HEMATOCRIT 44.2 % (34.2-48.2); HEMOGLOBIN 15.3 g/dL (11.4-15.5); LYMPHOCYTES PERCENT AUTO 17.4 % (18.4-52.1); MEAN CORPUSCULAR HEMOGLOBIN 29.4 pg (23.9-33.9); MEAN CORPUSCULAR HGB CONC 34.7 g/dL (31.9-34.8); MEAN CORPUSCULAR VOLUME 84.7 fL (76.7-100.5); MONOCYTES ABSOLUTE AUTO 0.3 x10-3/uL (0.3-1.0); NEUTROPHILS ABSOLUTE AUTO 4.3 x10-3/uL (1.5-6.3); PLATELET COUNT,PLT 224 x10(3)uL (151-488); RED BLOOD CELL COUNT 5.22 x10(6)uL (3.60-5.20); RED CELL DISTRIBUTION WIDTH 13.7 % (12.3-16.5); WHITE BLOOD CELL COUNT,WBC 5.7 x10-3/uL (3.0-10.3)
[2024-07-24 10:48] LABS: BLOOD UREA NITROGEN,BUN 15 mg/dL (7-18); BUN/CREATININE RATIO 11.5 (9-20); CARBON DIOXIDE,CO2 25 mmol/L (21-32); CHLORIDE,CL 102 mmol/L (100-110); CREATININE 1.3 mg/dL (0.55-1.02); ESTIMATED GFR 40 mL/min (>60); GLUCOSE RANDOM 121 mg/dL (80-116); POTASSIUM,K 3.8 mmol/L (3.5-5.3); SODIUM,NA 138 mmol/L (135-145)
[2024-07-24 10:54] LABS: A/G RATIO 1.3; ALANINE AMINOTRANSFERASE,ALT 18 U/L (12-36); ALBUMIN 4.2 g/dL (3.2-4.6); ALKALINE PHOSPHATASE 71 IU/L (56-112); ASPARTATE AMNIOTRANSFERASE,AST 21 IU/L (5-25); PROTEIN TOTAL,TP 7.4 g/dL (6.0-8.0)
[2024-07-24 11:56] LABS: BILIRUBIN,URINE NEGATIVE (NEGATIVE); GLUCOSE,URINE NORMAL (NORMAL); KETONES,URINE 15 mg/dL (NEGATIVE); LEUKOCYTE ESTERASE,URINE NEGATIVE (NEGATIVE); NITRITE,URINE NEGATIVE (NEGATIVE); OCCULT BLOOD,URINE TRACE (NEGATIVE); PROTEIN,URINE NEGATIVE (NEGATIVE); UROBILINOGEN,URINE NORMAL (NEGATIVE)
[2024-07-24 12:00] LABS: APPEARANCE,URINE CLEAR (CLEAR); BACTERIA,URINE RARE (NS); COLOR,URINE YELLOW (YELLOW); RBC,URINE 0-5 (0-5); SQUAMOUS EPITHELIAL CELLS,UR RARE (NS,R,O)
== END 2024-07-24 13:50 | disposition home or self-care (01) ==
LOC: FB.ED 09:55
DX: R41.82 Altered mental status, unspecified (principal); E86.0 Dehydration; R82.4 Acetonuria; I12.9 Hypertensive chronic kidney disease with stage 1 through stage 4 chronic kidney disease, or unspecified chronic kidney disease; N18.30 Chronic kidney disease, stage 3 unspecified; E11.22 Type 2 diabetes mellitus with diabetic chronic kidney disease; E03.9 Hypothyroidism, unspecified; Z86.16 Personal history of COVID-19; Z90.710 Acquired absence of both cervix and uterus; Z79.82 Long term (current) use of aspirin; Z79.890 Hormone replacement therapy; Z79.899 Other long term (current) drug therapy; Z88.8 Allergy status to other drugs, medicaments and biological substances
CPT/HCPCS: 36415; 51701; 70450; 71045; 80053; 81001; 83605; 84484; 85025; 86140; 93005; 99285; A4353

== ENCOUNTER 2024-08-04 19:02 | Emergency (ER) | payer MEDICARE ==
[2024-08-04] MEDS ORDERED: ALPRAZolam 0.5 MG Tab PO ONE (19:03)
[2024-08-04] MEDS ORDERED: Sodium Chloride 0.9% 10 ML Syringe FLUSH PRN (19:15)
[2024-08-04] MEDS: Sodium Chloride 0.9% 1,000 ML IV SCH (19:38)
[2024-08-04] MEDS: Ondansetron 4 MG/2 ML SDV IVPUSH ONE (19:38)
[2024-08-04] MEDS: Pantoprazole 40 MG Vial IVPUSH ONE (19:41)
[2024-08-04 19:43] LABS: BASOPHILS PERCENT AUTO 0.8 % (0.2-1.5); EOSINOPHILS ABSOLUTE AUTO 0.1 x10-3/uL (0.0-0.8); EOSINOPHILS PERCENT AUTO 1.4 % (0.6-8.1); HEMATOCRIT 42.4 % (34.2-48.2); HEMOGLOBIN 14.8 g/dL (11.4-15.5); LYMPHOCYTES ABSOLUTE AUTO 2.1 x10-3/uL (1.0-4.4); LYMPHOCYTES PERCENT AUTO 37.8 % (18.4-52.1); MEAN CORPUSCULAR HEMOGLOBIN 29.2 pg (23.9-33.9); MEAN CORPUSCULAR HGB CONC 34.9 g/dL (31.9-34.8); MEAN CORPUSCULAR VOLUME 83.9 fL (76.7-100.5); MEAN PLATELET VOLUME 6.9 fL (7.1-12.4); MONOCYTES ABSOLUTE AUTO 0.4 x10-3/uL (0.3-1.0); MONOCYTES PERCENT AUTO 7.4 % (4.4-15.7); NEUTROPHILS PERCENT AUTO 52.6 % (30.8-76.2); PLATELET COUNT,PLT 254 x10(3)uL (151-488); RED BLOOD CELL COUNT 5.05 x10(6)uL (3.60-5.20); RED CELL DISTRIBUTION WIDTH 13.7 % (12.3-16.5); WHITE BLOOD CELL COUNT,WBC 5.6 x10-3/uL (3.0-10.3)
[2024-08-04 19:45] LABS: BLOOD UREA NITROGEN,BUN 22 mg/dL (7-18); BUN/CREATININE RATIO 16.9 (9-20); CARBON DIOXIDE,CO2 28 mmol/L (21-32); CHLORIDE,CL 102 mmol/L (100-110); CREATININE 1.3 mg/dL (0.55-1.02); ESTIMATED GFR 40 mL/min (>60); GLUCOSE RANDOM 170 mg/dL (80-116); POTASSIUM,K 3.8 mmol/L (3.5-5.3); SODIUM,NA 138 mmol/L (135-145)
== END 2024-08-04 20:41 | disposition home or self-care (01) ==
LOC: FB.ED 19:02
DX: E86.0 Dehydration (principal); F41.1 Generalized anxiety disorder; Z91.89 Other specified personal risk factors, not elsewhere classified; I25.10 Atherosclerotic heart disease of native coronary artery without angina pectoris; I10 Essential (primary) hypertension; E11.42 Type 2 diabetes mellitus with diabetic polyneuropathy; E03.9 Hypothyroidism, unspecified; Z86.16 Personal history of COVID-19; Z79.899 Other long term (current) drug therapy; Z79.84 Long term (current) use of oral hypoglycemic drugs; Z79.82 Long term (current) use of aspirin; Z88.8 Allergy status to other drugs, medicaments and biological substances
CPT/HCPCS: 36415; 80048; 85025; 96361; 96374; 96375; 99284; A9270; J2405; J2470; J7030

== ENCOUNTER 2024-11-19 15:42 | Emergency (ER) | payer MEDICARE ==
[2024-11-19] MEDS: Metoprolol Tartrate 5 MG/5 ML SDV IVPUSH ONE (16:27)
[2024-11-19] MEDS ORDERED: Sodium Chloride 0.9% 10 ML Syringe FLUSH PRN (16:42)
[2024-11-19 17:01] LABS: BASOPHILS ABSOLUTE AUTO 0.0 x10-3/uL (0.0-0.1); BASOPHILS PERCENT AUTO 0.3 % (0.2-1.5); EOSINOPHILS ABSOLUTE AUTO 0.0 x10-3/uL (0.0-0.8); EOSINOPHILS PERCENT AUTO 0.6 % (0.6-8.1); LYMPHOCYTES ABSOLUTE AUTO 1.4 x10-3/uL (1.0-4.4); LYMPHOCYTES PERCENT AUTO 27.8 % (18.4-52.1); MEAN PLATELET VOLUME 6.7 fL (7.1-12.4); MONOCYTES ABSOLUTE AUTO 0.3 x10-3/uL (0.3-1.0); MONOCYTES PERCENT AUTO 6.6 % (4.4-15.7); NEUTROPHILS ABSOLUTE AUTO 3.4 x10-3/uL (1.5-6.3); NEUTROPHILS PERCENT AUTO 64.7 % (30.8-76.2); PLATELET COUNT,PLT 228 x10(3)uL (151-488); RED BLOOD CELL COUNT 4.43 x10(6)uL (3.60-5.20); RED CELL DISTRIBUTION WIDTH 13.9 % (12.3-16.5); WHITE BLOOD CELL COUNT,WBC 5.2 x10-3/uL (3.0-10.3)
[2024-11-19 17:04] LABS: BLOOD UREA NITROGEN,BUN 18 mg/dL (7-18); CARBON DIOXIDE,CO2 28 mmol/L (21-32); CHLORIDE,CL 104 mmol/L (100-110); CREATININE 1.2 mg/dL (0.55-1.02); EST CRCL DRUG DOSING (CG) 24.62 mL/min; ESTIMATED GFR 44 mL/min (>60); GLUCOSE RANDOM 240 mg/dL (80-116); POTASSIUM,K 3.9 mmol/L (3.5-5.3); SODIUM,NA 140 mmol/L (135-145)
[2024-11-19] MEDS: LORazepam 2 MG/ML SDV IVPUSH ONE (17:06)
[2024-11-19] MEDS: Sodium Chloride 0.9% 10 ML Syringe FLUSH PRN (17:08)
[2024-11-19 17:11] LABS: A/G RATIO 1.3; ALANINE AMINOTRANSFERASE,ALT 18 U/L (12-36); ASPARTATE AMNIOTRANSFERASE,AST 13 IU/L (5-25); BILIRUBIN TOTAL 0.4 mg/dL (0.1-1.3); PROTEIN TOTAL,TP 6.3 g/dL (6.0-8.0)
[2024-11-19] MEDS: hydrALAZINE 20 MG/ML SDV IVPUSH ONE (19:45)
== END 2024-11-19 20:10 | disposition home or self-care (01) ==
LOC: FB.ED 15:42
DX: I15.8 Other secondary hypertension (principal); F41.1 Generalized anxiety disorder; I25.10 Atherosclerotic heart disease of native coronary artery without angina pectoris; I10 Essential (primary) hypertension; E03.9 Hypothyroidism, unspecified; E11.40 Type 2 diabetes mellitus with diabetic neuropathy, unspecified; Z86.16 Personal history of COVID-19; Z88.8 Allergy status to other drugs, medicaments and biological substances; Z79.82 Long term (current) use of aspirin; Z79.899 Other long term (current) drug therapy; Z87.891 Personal history of nicotine dependence
CPT/HCPCS: 80053; 83735; 85025; 93005; 96374; 96375; 99284; A9270; J2060; J3490; 93010